=== PATIENT | male | born 1965 | race African-American/Black ===

== ENCOUNTER → 2017-02-16 | Outpatient (CLI) | payer OTHER ==
[~2017-02-16] MED LIST: ATROPINE SULFATE 0.1 MG/ML 5ML SYR ONE; DOBUTamine HCL 12.5 MG/ML 20 ML VIAL ONE; METOPROLOL TARTRATE 1 MG/ML VIAL ONE
--- NOTE | 2017-02-16 18:01 | DOBUTAMINE ECHO ---
*NOTICE TO RECEIVING CONSTITUTION PARTY AGENCY This information is strictly Confidential and protected under [place] law. [place] law prohibits you from making any further disclosure of this information unless further disclosure is expressly permitted by the written consent of the person to whom it pertains or is authorized by law. A general authorization for the release of medical or other information is not sufficient for this purpose. Hospital accepts no responsibility if the information is made available to any other person, INCLUDING THE PATIENT. Interpretation Summary * Name: KAUSHAL VALLE [id number] Study Date: 02/16/2017 11:39 AM BP: 128/87 mmHg * Patient Location: [facility] HR: 78 * : 1965 (M/d/yyyy) Gender: Male Height: 66 in * Age: 51 yrs Ethnicity: AA Weight: 215 lb * Referring Physician: MICKIE * Performed By: Kemi Hernandez RDCS * * Reason For Study: CHEST PAIN * BSA: 2.1 m2 * -- Conclusions -- * Dobutamine Stress Echo: * 1. Negative Dobutamine stress echo for ischemia at 93 % MPHR. * 2. Negative Dobutamine ECG for ischemia at 93 % MPHR. * 3. Appropriate blood pressure response. * 4. No arrhythmia. * 5. Intermittent sharp chest discomfort was reported, reportedly different than his prior chest pain. * 6. Technically difficult study, enhanced with IV Definity. * Echo: * 1. Normal left ventricular size and systolic function. EF 60-65%. No regional wall motion abnormalities. No left ventricular hypertrophy. Type 2 diastolic dysfunction, pseudo normalized pattern. * 2. Mild to moderate mitral regurgitation. Procedure Details * DOBUTAMINE ECHO, CPT#09612 * A contrast injection of Definity was performed to improve assessment of LV function. * Contrast was injected into an intravenous site in the left arm. * One vial of Definity ultrasound contrast was diluted in normal saline to a total volume of 10 ml. A total of '6' ml of solution was administered during imaging. * Lot # [id number] of Definity utilized for procedure. * Expiration date FEB 18. * The attending nurse who injected the contrast agent was MITCHEL SHEPPARD RN. Left Ventricle * The left ventricle is normal in size. * There is normal left ventricular wall thickness. * Left ventricular systolic function is normal. * Resting wall motion: Normal. Stress wall motion: Appropriate increase in Left ventricular systolic function and decrease in cavity size. No stress induced segmental wall motion abnormalities. * The left ventricular ejection fraction increases normally with stress. The left ventricular end-systolic cavity size reduces post-stress (normal response). The left ventricular wall motion with stress is normal. Right Ventricle * The right ventricle is normal in size and function. * The right ventricular systolic function is normal as assessed by tricuspid annular plane systolic excursion (TAPSE) (normal >1.5 cm). Atria * Borderline left atrial enlargement. * Right atrial size is normal. * There is no evidence of atrial septal defect, but resolution does not allow assessment for a patent foramen ovale. Mitral Valve * The mitral valve is grossly normal. * There is no mitral valve stenosis. * There is mild to moderate mitral regurgitation. Tricuspid Valve * The tricuspid valve is not well visualized, but is grossly normal. * There is no tricuspid stenosis. * There is trace tricuspid regurgitation. Aortic Valve * The aortic valve is trileaflet. * No hemodynamically significant valvular aortic stenosis. * No aortic regurgitation is present. Pulmonic Valve * The pulmonary valve is inadequately visualized, but the Doppler data is adequate for interpretation. * There is no significant pulmonary regurgitation. Great Vessels * The aortic root is normal size. * Ascending aorta of normal dimension Pericardium * There is no pericardial effusion. Stress Parameters * Sinus rhythm at 82 bpm. * Stress ECG: No ST changes. No arrhythmias. * No arrhythmia were noted with stress. * The stress portion of this study was personally supervised by the undersigned interpreting physician. * Rest heart rate was '78' BPM. * Rest blood pressure was '128/87' * Maximum heart rate achieved was 157 bpm. * Maximum heart rate was 93 % of maximum age-predicted heart rate. * Maximum blood pressure was '128/87' * Maximum Dobutamine infusion rate was '40' mcg/kg/min. * Dobutamine infusion was terminated due to achieving target heart rate * A total of 7.5 mg of IV Metoprolol was administered to reverse Dobutamine-induced tachycardia. * The patient exhibited chest pain during the drug infusion. MMode 2D Measurements and Calculations IVSd 1.1 cm IVSs 1.7 cm LVIDd 4.5 cm LVIDs 2.9 cm LVPWd 1.1 cm LVPWs 1.7 cm IVS/LVPW 0.96 FS 36.6 % EDV(Teich) 94.8 ml ESV(Teich) 31.8 ml EF(Teich) 66.4 % EDV(cubed) 94.1 ml ESV(cubed) 24.0 ml EF(cubed) 74.5 % % IVS thick 61.1 % % LVPW thick 53.6 % LV mass(C)d 178.8 grams LV mass(C)dI 86.7 grams/m\S\2 LV mass(C)s 194.3 grams LV mass(C)sI 94.2 grams/m\S\2 SV(Teich) 63.0 ml SI(Teich) 30.5 ml/m\S\2 SV(cubed) 70.0 ml SI(cubed) 34.0 ml/m\S\2 Ao root diam 2.9 cm Ao root area 6.6 cm\S\2 LA dimension 4.1 cm asc Aorta Diam 2.5 cm LA/Ao 1.4 LVAd ap4 30.7 cm\S\2 LVLd ap4 7.7 cm EDV(MOD-sp4) 103.8 ml EDV(sp4-el) 103.7 ml LVAs ap4 18.0 cm\S\2 LVLs ap4 6.6 cm ESV(MOD-sp4) 44.9 ml ESV(sp4-el) 41.6 ml EF(MOD-sp4) 56.7 % EF(sp4-el) 59.9 % SV(MOD-sp4) 58.8 ml SI(MOD-sp4) 28.5 ml/m\S\2 SV(sp4-el) 62.1 ml SI(sp4-el) 30.1 ml/m\S\2 Doppler Measurements and Calculations MV E max agnes 87.8 cm/sec MV A max agnes 66.0 cm/sec MV E/A 1.3 MV dec time 0.16 sec Ao V2 max 101.6 cm/sec Ao max PG 4.1 mmHg Ao max PG (full) 0.25 mmHg LV V1 max PG 3.9 mmHg LV V1 max 98.5 cm/sec
== END ==
LOC: C.CPL 11:33
PROVIDERS: ATTEND Family Medicine
DX: R94.31 Abnormal electrocardiogram [ECG] [EKG] (principal); E11.8 Type 2 diabetes mellitus with unspecified complications

== ENCOUNTER 2017-09-21 23:40 | Inpatient (IN) | payer OTHER ==
[~2017-09-21] VITALS: Ht 165.1 cm; Wt 111.2 kg
[2017-09-21] MEDS ORDERED: KETOROLAC TROMETHAMINE 30 MG/ML VIAL IV STA (23:50)
[2017-09-21] MEDS ORDERED: SODIUM CHLORIDE 0.9% 1000ML 1,000 ML IV STA (23:50)
[2017-09-21] MEDS ORDERED: ONDANSETRON INJ 2 MG/ML 2 ML VIAL IV STA (23:50)
[2017-09-22 00:31] LABS: HEMATOCRIT 41.8 % (42-52); HEMOGLOBIN 15.3 g/dL (14.0-18.0); MEAN CELL VOLUME 86.7 fL (80-100); MEAN CORPUSCULAR HEMOGLOBIN 31.7 pg (25-34); MEAN CORPUSCULAR HGB CONC 36.6 g/dl (32-36); MEAN PLATELET VOLUME 9.8 fL (7.4-10.4); PLATELET COUNT 232 K/uL (130-400); RED CELL DISTRIBUTION WIDTH CV 13.2 % (11.5-14.5); RED CELL DISTRIBUTION WIDTH SD 42.2 fL (36.4-46.3); WHITE BLOOD COUNT 15.77 K/uL (4.8-10.8)
[2017-09-22 00:53] LABS: ALBUMIN 3.6 gm/dl (3.4-5.0); ALT/SGPT 51 U/L (12-78); BLOOD UREA NITROGEN 11 mg/dl (7-18); CALCIUM 8.8 mg/dl (8.5-10.1); CARBON DIOXIDE 26 mmol/L (21-32); CREATININE 0.86 mg/dl (0.60-1.40); GLUCOSE 109 mg/dl (70-99); LIPASE 1500 U/L (73-393); POTASSIUM 3.7 mmol/L (3.5-5.1); SODIUM 138 mmol/L (136-145)
[2017-09-22 00:58] LABS: ALKALINE PHOSPHATASE 78 U/L (45-117); AST/SGOT 24 U/L (15-37); TOTAL PROTEIN 8.4 gm/dl (6.4-8.2)
[2017-09-22 01:16] LABS: BASO % 0.3 %; BASO ABS # 0.04 K/uL (0-0.2); EOS % 0.2 %; EOS ABS # 0.03 K/uL (0-0.5); IG# 0.04 K/uL (0.00-0.02); LYMPH % 36.1 %; MONO % 6.9 %; MONO ABS # 1.09 K/uL (0.11-0.59); NEUT % 56.2 %; NEUT ABS # 8.87 K/uL (1.4-6.5)
[2017-09-22] MEDS ORDERED: OPTIRAY 320 IV PRN (01:30)
[2017-09-22] MEDS ORDERED: CYM/30 PO (01:45)
[2017-09-22] MEDS ORDERED: LISI-461 PO (01:45)
[2017-09-22] MEDS ORDERED: MIRT15TA2 PO (01:46)
[2017-09-22] MEDS ORDERED: INSHI7030 SQ (01:48)
[2017-09-22 04:05] VITALS: Ht 165.1 cm; Wt 111.2 kg
--- NOTE | 2017-09-22 04:08 | EMERGENCY ROOM VISIT NOTE ---
History First contact with patient: 23:47 Chief Complaint: ABDOMINAL PAIN Stated Complaint: UPPR ABDOMINAL PAIN-STEADY SHARP Nursing Triage Summary: Pt reports right upper abdominal pain. Pt states that it feels the same as when he had pancreatitis. Pt reports nausea denies vomiting. History of Present Illness The patient is a 52 year old male who presents to the Emergency Room with complaints of epigastric pain for the past few days described as discomfort, ranging in severity 7 out of 10 with nausea and vomiting. Nothing makes it better or worse. It does not radiate. Patient has a history of pancreatitis and symptoms were similar. Status post cholecystectomy. He went to the [facility] and then was sent here for further evaluation and treatment. Patient denies chest pain, dyspnea, fever, chills, cough, congestion, back pain, urinary symptoms, diarrhea. Review of Systems An 10 system review of systems was completed with positives and pertinent negatives listed in the HPI. Past Medical/Surgical History Pancreatitis, hep C, back pain, adjustment disorder, hypertension, diabetes, cholecystectomy Social History Smoking Status: Current Every Day Smoker Occupation Status: other (Incarcerated) Current/Historical Medications Scheduled Duloxetine HCl (Cymbalta), 30 MG PO DAILY Insulin Human Isophan/Regular (Humulin 70/30), 24 UNITS SQ BID Lisinopril (Zestril), 10 MG PO DAILY Mirtazapine Soltab (Remeron Soltab), 15 MG PO HS Physical Exam Vital Signs Date Time Temp Pulse Resp B/P (MAP) Pulse Ox O2 Delivery O2 Flow Rate FiO2 09/22/17 04:00 36.9 84 16 128/91 99 Room Air 09/22/17 02:01 86 16 126/84 99 Room Air 09/22/17 00:30 91 09/22/17 00:30 Room Air 09/21/17 23:42 36.9 100 20 153/99 97 Room Air Physical Exam VITALS: Vitals are noted on the nurse's note and reviewed by myself. Vital signs stable. GENERAL: -Irish male in shackles, in no acute distress, nondiaphoretic , well-developed well-nourished. SKIN: The skin was without rashes, erythema, edema, or bruising. There is no tenting of the skin. Capillary reflex less than 2 seconds. HEAD: Normocephalic atraumatic. EARS: External auditory canals clear, tympanic membranes pearly pires without erythema or effusion bilaterally. EYES: Pupils equal round and reactive to light and accommodation. Conjunctivae without injection, sclerae without icterus. Extraocular movements intact. NOSE: Patent, turbinates without inflammation or discharge. MOUTH: Mucous membranes moist. Pharynx without erythema or exudate. Uvula midline. Airway patent. Tongue does not deviate. NECK: Supple without nuchal rigidity. No lymphadenopathy. No thyromegaly. Cervical spine is nontender. No JVD. HEART: Regular rate and rhythm LUNGS: Clear to auscultation bilaterally without wheezes, rales or rhonchi. No retractions or accessory muscle use. ABDOMEN: Positive bowel sounds x 4. Normal tympanic percussion. Soft, tender to palpation epigastric region, without masses or organomegaly. Ayoub sign negative. No guarding or rebound tenderness. No CVA tenderness MUSCULOSKELETAL: No muscle atrophy, erythema, or edema noted. NEURO: Patient was alert and oriented to person place and time. Normal sensation to light and sharp touch. No focal neurological deficits. Medical Decision & Procedures Laboratory Results 09/22/17 00:18 Red Blood Count 4.82, Mean Corpuscular Volume 86.7, Mean Corpuscular Hemoglobin 31.7, Mean Corpuscular Hemoglobin Concent 36.6, Mean Platelet Volume 9.8, Neutrophils (%) (Auto) 56.2, Lymphocytes (%) (Auto) 36.1, Monocytes (%) (Auto) 6.9, Eosinophils (%) (Auto) 0.2, Basophils (%) (Auto) 0.3, Neutrophils # (Auto) 8.87, Lymphocytes # (Auto) 5.70, Monocytes # (Auto) 1.09, Eosinophils # (Auto) 0.03, Basophils # (Auto) 0.04 09/22/17 00:18 Test 09/22/17 00:18 09/22/17 00:25 White Blood Count 15.77 K/uL (4.8-10.8) Red Blood Count 4.82 M/uL (4.7-6.1) Hemoglobin 15.3 g/dL (14.0-18.0) Hematocrit 41.8 % (42-52) Mean Corpuscular Volume 86.7 fL (80-100) Mean Corpuscular Hemoglobin 31.7 pg (25-34) Mean Corpuscular Hemoglobin Concent 36.6 g/dl (32-36) Platelet Count 232 K/uL (130-400) Mean Platelet Volume 9.8 fL (7.4-10.4) Neutrophils (%) (Auto) 56.2 % Lymphocytes (%) (Auto) 36.1 % Monocytes (%) (Auto) 6.9 % Eosinophils (%) (Auto) 0.2 % Basophils (%) (Auto) 0.3 % Neutrophils # (Auto) 8.87 K/uL (1.4-6.5) Lymphocytes # (Auto) 5.70 K/uL (1.2-3.4) Monocytes # (Auto) 1.09 K/uL (0.11-0.59) Eosinophils # (Auto) 0.03 K/uL (0-0.5) Basophils # (Auto) 0.04 K/uL (0-0.2) RDW Standard Deviation 42.2 fL (36.4-46.3) RDW Coefficient of Variation 13.2 % (11.5-14.5) Immature Granulocyte % (Auto) 0.3 % Immature Granulocyte # (Auto) 0.04 K/uL (0.00-0.02) Anion Gap 7.0 mmol/L (3-11) Est Creatinine Clear Calc Drug Dose 114.3 ml/min Estimated GFR () 114.7 Estimated GFR (Non- 99.0 BUN/Creatinine Ratio 13.2 (10-20) Calcium Level 8.8 mg/dl (8.5-10.1) Total Bilirubin 0.4 mg/dl (0.2-1) Direct Bilirubin 0.1 mg/dl (0-0.2) Aspartate Amino Transf (AST/SGOT) 24 U/L (15-37) Alanine Aminotransferase (ALT/SGPT) 51 U/L (12-78) Alkaline Phosphatase 78 U/L (45-117) Troponin I < 0.015 ng/ml (0-0.045) Total Protein 8.4 gm/dl (6.4-8.2) Albumin 3.6 gm/dl (3.4-5.0) Lipase 1500 U/L (73-393) Bedside Troponin I < 0.030 ng/ml (0-0.045) Medications Administered Medications (Trade) Dose Ordered Sig/Martha Route Start Time Stop Time Status Last Admin Dose Admin Ondansetron HCl (Zofran Inj) 4 mg NOW STAT IV 09/21/17 23:50 09/21/17 23:54 DC 09/22/17 00:28 4 MG Ketorolac Tromethamine (Toradol Inj) 15 mg NOW STAT IV 09/21/17 23:50 09/21/17 23:54 DC 09/22/17 00:29 15 MG Sodium Chloride 1,000 ml @ 999 mls/hr Q1H1M STAT IV 09/21/17 23:50 09/22/17 00:50 DC 09/22/17 00:28 999 MLS/HR ED Course Prior records/ancillary studies reviewed. Triage Nursing notes reviewed. Additional history obtained from correction officers. The patient's history was concerning for abdominal pain. Differential diagnosis: Etiologies such as appendicitis, diverticulitis, PUD, biliary pathology, UTI, pancreatitis, obstruction, mesenteric ischemia, aortic pathology, infections, inflammatory bowel disease, renal colic, as well as others were entertained. Physical examination findings: As above. ER treatment provided: IV fluids, Toradol, Zofran On reassessment the patient felt better. Diagnostics interpreted by me: ECG: Normal sinus, normal intervals, poor baseline, no acute ST-T wave changes, rate of 96. Impression normal sinus rhythm interpreted by myself The labs revealed leukocytosis, elevated lipase, negative troponin Imaging studies: Chest x-ray with no acute consolidation, pneumothorax free of my interpretation Abdominal pelvis CT concerning for acute pancreatitis per radiology Consultation: A consultation was placed with the hospitalist, Dr. Wren. The case was discussed and diagnostics were reviewed. The patient was evaluated in the ER for further treatment. Exam and history seem consistent with pancreatitis. Patient has had this problem before. He has been admitted to [place] before for this. Patient had a CT concerning for acute pancreatitis. He had a leukocytosis. His lipase was 1500. He will be evaluated by medicine for possible admission. Patient was afebrile and nontoxic. By the evaluation outlined above emergent etiologies such as appendicitis, diverticulitis, PUD, biliary pathology, UTI, obstruction , mesenteric ischemia, aortic pathology, inflammatory bowel disease, renal colic , as well as others were deemed relatively unlikely. The pt informed about the findings as listed above. All questions were answered and pleased with the treatment. Case reviewed with my attending The chart was completed utilizing [employer] Speech voice recognition software. Grammatical errors, random word insertions, pronoun errors, and incomplete sentences are an occassional consequence of this system due to software limitations, ambient noise, and hardware issues. Any formal questions or concerns about the content, text, or information contained within the body of this dictation should be directly addressed to the physician assistant superintendent for curriculum for clarification. Medical Decision As above Medication Reconcilliation Current Medication List: was personally reviewed by me Blood Pressure Screening Patient's blood pressure: Normal blood pressure Impression Primary Impression: Pancreatitis Departure Information Dispostion Being Evaluated By Hospitalist Condition FAIR Referrals [facility] (PCP) Patient Instructions [facility] Problem Qualifiers Primary Impression: Pancreatitis Chronicity: acute Pancreatitis type: unspecified pancreatitis type Acute pancreatitis complication: unspecified Qualified Codes: K85.90 - Acute pancreatitis without necrosis or infection, unspecified
[2017-09-22] MEDS ORDERED: GLUCAGON FOR INJ 1 MG VIAL SQ PRN (04:30)
[2017-09-22] MEDS ORDERED: DEXTROSE 50% 50 ML SYR IV PRN (04:30)
[2017-09-22] MEDS ORDERED: ACETAMINOPHEN 325 MG TAB PO PRN (04:30)
[2017-09-22] MEDS ORDERED: GLUCOSE 10 TABS/TUBE PO PRN (04:30)
[2017-09-22] MEDS ORDERED: GLUCOSE 40% GEL 15 GM TUBE PO PRN (04:30)
[2017-09-22] MEDS ORDERED: INFLUENZA VIRUS QUAD VACCINE 0.5 ML SYR IM. ONE (04:45)
[2017-09-22] MEDS ORDERED: PNEUMOCOCCAL POLYSACCHARIDES 25 MCG/0.5 ML VIAL/SYR IM. ONE (04:45)
[2017-09-22] MEDS ORDERED: INFLUENZA ADMINISTRATION CHARGE ONE (04:45)
[2017-09-22] MEDS ORDERED: PNEUMOCOCCAL ADMINISTRATION CHARGE ONE (04:45)
[2017-09-22 05:18] VITALS: O2SAT 96
[2017-09-22] MEDS ORDERED: NURSING DECISION MEDICATION ORDER SCH (05:30)
--- NOTE | 2017-09-22 05:42 | History and Physical ---
History & Physical Date & Time of Service: Sep 22, 2017 at 05:36 Chief Complaint: Uppr Abdominal Pain-Steady Sharp Primary Care Physician: Ryland DONOVAN History of Present Illness This is a 52 year old M from [facility] with 4 days of abdominal pain. Patient denies fevers or acute vomiting or changes in bowel movements. On CT scan patient was found to have evidence of pancreatics and elevated lipase on labs. Patient admitted for acute pancreatitis. Patient denies pain besides upper epigastrium. Denies shortness of breath or headache. Family History Diabetes mellitus GRANDFATHER Social History Smoking Status: Current Every Day Smoker Occupational Status: other (Incarcerated) Allergies Coded Allergies: Shellfish (Verified Allergy, Unknown, UNKNOWN, 09/22/17) Uncoded Allergies: PENICILLIN (Allergy, Unknown, UNKNOWN, 09/22/17) Home Medications Scheduled Duloxetine HCl (Cymbalta), 30 MG PO DAILY Insulin Human Isophan/Regular (Humulin 70/30), 24 UNITS SQ BID Lisinopril (Zestril), 10 MG PO DAILY Mirtazapine Soltab (Remeron Soltab), 15 MG PO HS Review of Systems Constitutional: No fever Eyes: No worsening of vision ENT: No hearing loss Respiratory: No cough, No wheezing, No shortness of breath Cardiovascular: No chest pain, No palpitations Abdomen: + pain (upper epigastric), No vomiting, No diarrhea, No constipation Musculoskeletal: No joint pain, No muscle pain, No swelling, No calf pain Genitourinary - Male: No dysuria Neurologic: No weakness, No numbness/tingling Endocrine: No fatigue Hematologic / Lymphatic: No abnormal bleeding/bruising Integumentary: No rash, No itch Physical Exam Vital Signs Date Time Temp Pulse Resp B/P (MAP) Pulse Ox O2 Delivery O2 Flow Rate FiO2 09/22/17 05:18 83 20 100/74 96 09/22/17 04:05 Room Air 09/22/17 04:00 36.9 84 16 128/91 99 Room Air 09/22/17 02:01 86 16 126/84 99 Room Air 09/22/17 00:30 91 09/22/17 00:30 Room Air 09/21/17 23:42 36.9 100 20 153/99 97 Room Air General Appearance: no apparent distress Head: normocephalic, atraumatic Eyes: normal inspection, EOMI, sclerae normal ENT: normal ENT inspection, hearing grossly normal, pharynx normal Neck: supple, no JVD, trachea midline Respiratory/Chest: chest non-tender, lungs clear, normal breath sounds, no respiratory distress, no accessory muscle use Cardiovascular: regular rate, rhythm, no edema, no JVD, no murmur, normal peripheral pulses Abdomen/GI: normal bowel sounds, soft, no organomegaly, no pulsatile mass, + pertinent finding (upper epigrastic tenderness) Back: normal inspection Extremities/Musculoskelatal: normal inspection, no calf tenderness, no pedal edema, normal range of motion Neurologic/Psych: no motor/sensory deficits, alert, normal mood/affect, oriented x 3 Skin: normal color, warm/dry, no rash Diagnostics Laboratory Results Results Past 24 Hours Test 09/22/17 00:18 09/22/17 00:25 Range/Units White Blood Count 15.77 4.8-10.8 K/uL Red Blood Count 4.82 4.7-6.1 M/uL Hemoglobin 15.3 14.0-18.0 g/dL Hematocrit 41.8 42-52 % Mean Corpuscular Volume 86.7 80-100 fL Mean Corpuscular Hemoglobin 31.7 25-34 pg Mean Corpuscular Hemoglobin Concent 36.6 32-36 g/dl Platelet Count 232 130-400 K/uL Mean Platelet Volume 9.8 7.4-10.4 fL Neutrophils (%) (Auto) 56.2 % Lymphocytes (%) (Auto) 36.1 % Monocytes (%) (Auto) 6.9 % Eosinophils (%) (Auto) 0.2 % Basophils (%) (Auto) 0.3 % Neutrophils # (Auto) 8.87 1.4-6.5 K/uL Lymphocytes # (Auto) 5.70 1.2-3.4 K/uL Monocytes # (Auto) 1.09 0.11-0.59 K/uL Eosinophils # (Auto) 0.03 0-0.5 K/uL Basophils # (Auto) 0.04 0-0.2 K/uL RDW Standard Deviation 42.2 36.4-46.3 fL RDW Coefficient of Variation 13.2 11.5-14.5 % Immature Granulocyte % (Auto) 0.3 % Immature Granulocyte # (Auto) 0.04 0.00-0.02 K/uL Sodium Level 138 136-145 mmol/L Potassium Level 3.7 3.5-5.1 mmol/L Chloride Level 105 98-107 mmol/L Carbon Dioxide Level 26 21-32 mmol/L Anion Gap 7.0 3-11 mmol/L Blood Urea Nitrogen 11 7-18 mg/dl Creatinine 0.86 0.60-1.40 mg/dl Est Creatinine Clear Calc Drug Dose 114.3 ml/min Estimated GFR () 114.7 Estimated GFR (Non- 99.0 BUN/Creatinine Ratio 13.2 10-20 Random Glucose 109 70-99 mg/dl Calcium Level 8.8 8.5-10.1 mg/dl Total Bilirubin 0.4 0.2-1 mg/dl Direct Bilirubin 0.1 0-0.2 mg/dl Aspartate Amino Transf (AST/SGOT) 24 15-37 U/L Alanine Aminotransferase (ALT/SGPT) 51 12-78 U/L Alkaline Phosphatase 78 45-117 U/L Troponin I < 0.015 0-0.045 ng/ml Total Protein 8.4 6.4-8.2 gm/dl Albumin 3.6 3.4-5.0 gm/dl Lipase 1500 73-393 U/L Bedside Troponin I < 0.030 0-0.045 ng/ml Impression Assessment and Plan 4 days of abdominal pain (upper epigastrium) CT abdomen consistent with pancreatitis, Lipase is 1500 Bowel rest: Keep NPO except ice chips, sips, meds ; Continue IV hydration Pain control medications with bowel regimen if requiring narcotics GI consult consult requested History of Diabetes on Insulin as patient is on bowel rest, will hold off usual standing dose of insulin start sliding scale insulin based on fingerstick glucose HTN monitor blood pressure while on IV fluids continue Lisinopril Mood disorder Continue duloxetine and Remeron DVT ppx: SCDs Full Code Advanced Directives Existing Living Will: No Existing Power of Lock [employer] Dam Repairer: No Resuscitation Status VTE Prophylaxis Will order VTE Prophylaxis: Yes
[2017-09-22 05:58] VITALS: BP 141/94; PULSE 79; TEMP 36.6; O2SAT 100
[2017-09-22] MEDS: KETOROLAC TROMETHAMINE 15 MG/ML VIAL IV PRN ×2 (06:14→19:28)
[2017-09-22] MEDS ORDERED: SODIUM CHLORIDE 0.9% 1000ML 1,000 ML IV SCH (06:30)
[2017-09-22] MEDS: INSULIN ASPART 100 UNITS/ML 3 ML PEN SC SCH ×4 (06:51→21:13)
--- NOTE | 2017-09-22 07:09 | DIAGNOSTIC IMAGING REPORT ---
CHEST ONE VIEW PORTABLE CLINICAL HISTORY: 52 years-old Male presenting with CHEST PAIN and abdominal pain. TECHNIQUE: Portable upright AP view of the chest was obtained. COMPARISON: None. FINDINGS: Atherosclerosis of the aortic arch. Cardiac silhouette normal in size. Lungs and pleural spaces clear. Osseous structures normal. Upper abdomen normal. IMPRESSION: 1. No acute cardiopulmonary disease. Electronically signed by: Rajesh Domínguez M.D. 09/22/2017 7:08 AM Dictated Date/Time: 09/22/2017 7:07 AM
--- NOTE | 2017-09-22 07:27 | DIAGNOSTIC IMAGING REPORT ---
ABD/PELVIS IV CONTRAST ONLY CLINICAL HISTORY: 52 years-old Male presenting with epigastric pain, elevated lipase, ? pancreatitis. TECHNIQUE: Multidetector CT of the abdomen and pelvis was performed after the administration of intravenous contrast. IV contrast: 93 mL of Optiray 320. A dose lowering technique was used consistent with the principles of ALARA (as low as reasonably achievable). COMPARISON: None. CT DOSE (mGy.cm): The estimated cumulative dose is 797.06 mGy.cm. FINDINGS: Medical Technologist Chief topogram: Cholecystectomy clips. Lung bases: Minimal basilar opacities, likely atelectasis. Normal heart size. No pericardial or pleural effusion. Liver: Normal morphology. No liver lesion. Patent hepatic vasculature. Biliary: Mild biliary ductal prominence likely a reservoir effect in the post cholecystectomy state. Gallbladder surgically absent. Pancreas: Peripancreatic fat stranding at the uncinate process and pancreatic head. Normal parenchymal enhancement. No peripancreatic or intrapancreatic fluid collection. Spleen: Normal. Splenic vein and artery patent. No aneurysm. Adrenal glands: 10 mm nodule arising from the medial limb of the left adrenal gland, indeterminate by density on this contrast-enhanced exam. Right adrenal gland normal. Kidneys and ureters: Normal parenchymal enhancement. No nephrolithiasis. No hydronephrosis. Ureters normal. Bladder: Incompletely evaluated secondary to underdistention. Pelvic organs: Prostate and seminal vesicles normal. Slight prominent dilatation of the bulbar urethra (series 3 image 458). Bowel: Normal appendix. No bowel obstruction. Mild wall thickening of the descending portion of the duodenum, likely secondarily reactive. Feces in small bowel suggest delayed transit. Peritoneal cavity: No free fluid or intraperitoneal gas. Lymph nodes: Few prominent lymph nodes in the portacaval region and tesha hepatis, likely reactive. Vasculature: Aorta and IVC patent and normal in caliber. Abdominal wall: Small fat-containing umbilical hernia. Musculoskeletal: Degenerative changes of the spine. IMPRESSION: 1. 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 No acute peripancreatic fluid collection. 2. Reactive wall thickening of the duodenum. 3. Indeterminate 10 mm left adrenal nodule. Statistically, this is most likely a benign adenoma. 4. Slight prominence of the bulbar urethra may suggest prior trauma. Electronically signed by: Rajesh Domínguez M.D. 09/22/2017 7:26 AM Dictated Date/Time: 09/22/2017 6:52 AM
[2017-09-22] MEDS: SENNA 8.6 MG TAB PO SCH (08:15)
[2017-09-22] MEDS: LISINOPRIL 10 MG TAB PO SCH (08:15)
[2017-09-22] MEDS: DULOXETINE (CYMBALTA) 30 MG CAP PO SCH (08:16)
[2017-09-22 11:30] LABS: HEMATOCRIT 42.5 % (42-52); HEMOGLOBIN 14.4 g/dL (14.0-18.0); MEAN CELL VOLUME 88.7 fL (80-100); MEAN CORPUSCULAR HEMOGLOBIN 30.1 pg (25-34); MEAN CORPUSCULAR HGB CONC 33.9 g/dl (32-36); MEAN PLATELET VOLUME 9.3 fL (7.4-10.4); PLATELET COUNT 196 K/uL (130-400); RED CELL DISTRIBUTION WIDTH CV 13.5 % (11.5-14.5); RED CELL DISTRIBUTION WIDTH SD 43.9 fL (36.4-46.3); WHITE BLOOD COUNT 10.77 K/uL (4.8-10.8)
[2017-09-22] MEDS: LACTATED RINGER'S 1000ML 1,000 ML IV SCH ×2 (11:50→18:06)
[2017-09-22 11:51] LABS: CALCIUM 8.3 mg/dl (8.5-10.1); CREATININE 0.97 mg/dl (0.60-1.40); POTASSIUM 4.7 mmol/L (3.5-5.1); TOTAL PROTEIN 7.2 gm/dl (6.4-8.2)
[2017-09-22 12:25] LABS: BASO % 0.3 %; BASO ABS # 0.03 K/uL (0-0.2); EOS % 0.7 %; EOS ABS # 0.08 K/uL (0-0.5); IG# 0.02 K/uL (0.00-0.02); LYMPH % 51.4 %; LYMPH ABS # 5.54 K/uL (1.2-3.4); MONO % 5.7 %; MONO ABS # 0.61 K/uL (0.11-0.59); NEUT % 41.7 %; NEUT ABS # 4.49 K/uL (1.4-6.5)
--- NOTE | 2017-09-22 13:04 | Gastrointestinal Consultation ---
Gastrointestinal Consultation Date of Consultation: Sep 22, 2017 Attending Physician: Roby Wren Consulting Physician: Allison Madden Reason for Consultation: Pancreatitis History of Present Illness Patient is a 52 year old male inmate who presented to ED w c/o abd pain, n/v x 4 days. Denies any bowel habit changes. Upon eval labs showed leukocytosis WBC of 15, normal H/H. CMP showed normal LFTs but Lipase noted to be elevated at 1500s. 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 He is s/p cholecystectomy, mild biliary dilation within range of post cholecystectomy state. Pt reports he's had 4 episodes of pancreatitis total. He was hospitalized in [place], [place]. [place] [facility] [place] Reviewing his outpt chart, he was admitted [place] [facility] [place] GI was consulted then. IgG4 labs negative. He had EUS done which showed biliary sludge, and he underwent cholecystectomy afterwards. He denies ETOH use for years not, but smokes tobacco daily. He denies any family hx of autoimmune diseases. Past Medical/Surgical History Medical Problems: (1) Pancreatitis Status: Acute Past Medical History: Pancreatitis, hep C, back pain, adjustment disorder, hypertension, diabetes Past Surgical History: Cholecystectomy, neck surgery Family History Diabetes mellitus GRANDFATHER Social History Smoking Status: Current Every Day Smoker Alcohol Use: none Drug Use: none Occupation Status: other (Incarcerated) Allergies Coded Allergies: Shellfish (Verified Allergy, Unknown, UNKNOWN, 09/22/17) Uncoded Allergies: PENICILLIN (Allergy, Unknown, UNKNOWN, 09/22/17) Current Medications Home Meds and Scripts Medications Dose Route/Sig Max Daily Dose Days Date Category Humulin 70/30 (Insulin Human Isoph/Insulin Regular) Inj 24 Units SQ BID 09/22/17 Reported Remeron Soltab (Mirtazapine) 15 Mg Soltab 15 Mg PO HS 09/22/17 Reported Zestril (Lisinopril) 10 Mg Tab 10 Mg PO DAILY 09/22/17 Reported Cymbalta (Duloxetine HCl) 30 Mg Cap 30 Mg PO DAILY 09/22/17 Reported Review of Systems Constitutional: No fever, No chills Respiratory: No cough, No shortness of breath Cardiac: No chest pain, No edema Abdomen: + pain, No nausea, No vomiting, No diarrhea Skin: No rash, No itch, No jaundice Physical Exam Date Time Temp Pulse Resp B/P (MAP) Pulse Ox O2 Delivery O2 Flow Rate FiO2 09/22/17 08:00 Room Air 09/22/17 05:58 36.6 79 16 141/94 (110) 100 Room Air 09/22/17 05:18 83 20 100/74 96 09/22/17 04:05 Room Air 09/22/17 04:00 36.9 84 16 128/91 99 Room Air 09/22/17 02:01 86 16 126/84 99 Room Air 09/22/17 00:30 91 09/22/17 00:30 Room Air 09/21/17 23:42 36.9 100 20 153/99 97 Room Air General Appearance: WD/WN, no apparent distress Eyes: normal inspection, PERRL Neck: supple, no JVD, trachea midline Respiratory/Chest: normal breath sounds, no respiratory distress, no accessory muscle use Cardiovascular: regular rate, rhythm, no gallop, no murmur Abdomen: normal bowel sounds, soft, + tenderness (mid upper abd quadrants ) Extremities: normal inspection, no pedal edema, no calf tenderness Neurologic/Psych: alert, normal mood/affect, oriented x 3 Skin: normal color, no jaundice, no rash Laboratory Results Last 24 Hours Test 09/22/17 00:18 09/22/17 00:25 09/22/17 06:17 09/22/17 11:19 White Blood Count 15.77 K/uL 10.77 K/uL Red Blood Count 4.82 M/uL 4.79 M/uL Hemoglobin 15.3 g/dL 14.4 g/dL Hematocrit 41.8 % 42.5 % Mean Corpuscular Volume 86.7 fL 88.7 fL Mean Corpuscular Hemoglobin 31.7 pg 30.1 pg Mean Corpuscular Hemoglobin Concent 36.6 g/dl 33.9 g/dl Platelet Count 232 K/uL 196 K/uL Mean Platelet Volume 9.8 fL 9.3 fL Neutrophils (%) (Auto) 56.2 % 41.7 % Lymphocytes (%) (Auto) 36.1 % 51.4 % Monocytes (%) (Auto) 6.9 % 5.7 % Eosinophils (%) (Auto) 0.2 % 0.7 % Basophils (%) (Auto) 0.3 % 0.3 % Neutrophils # (Auto) 8.87 K/uL 4.49 K/uL Lymphocytes # (Auto) 5.70 K/uL 5.54 K/uL Monocytes # (Auto) 1.09 K/uL 0.61 K/uL Eosinophils # (Auto) 0.03 K/uL 0.08 K/uL Basophils # (Auto) 0.04 K/uL 0.03 K/uL RDW Standard Deviation 42.2 fL 43.9 fL RDW Coefficient of Variation 13.2 % 13.5 % Immature Granulocyte % (Auto) 0.3 % 0.2 % Immature Granulocyte # (Auto) 0.04 K/uL 0.02 K/uL Blood Smear Review Sodium Level 138 mmol/L 139 mmol/L Potassium Level 3.7 mmol/L 4.7 mmol/L Chloride Level 105 mmol/L 106 mmol/L Carbon Dioxide Level 26 mmol/L 30 mmol/L Anion Gap 7.0 mmol/L 3.0 mmol/L Blood Urea Nitrogen 11 mg/dl 12 mg/dl Creatinine 0.86 mg/dl 0.97 mg/dl Est Creatinine Clear Calc Drug Dose 114.3 ml/min 101.4 ml/min Estimated GFR () 114.7 102.9 Estimated GFR (Non- 99.0 88.8 BUN/Creatinine Ratio 13.2 12.0 Random Glucose 109 mg/dl 91 mg/dl Calcium Level 8.8 mg/dl 8.3 mg/dl Total Bilirubin 0.4 mg/dl 0.5 mg/dl Direct Bilirubin 0.1 mg/dl Aspartate Amino Transf (AST/SGOT) 24 U/L 23 U/L Alanine Aminotransferase (ALT/SGPT) 51 U/L 42 U/L Alkaline Phosphatase 78 U/L 66 U/L Troponin I < 0.015 ng/ml Total Protein 8.4 gm/dl 7.2 gm/dl Albumin 3.6 gm/dl 3.0 gm/dl Lipase 1500 U/L 241 U/L Bedside Troponin I < 0.030 ng/ml Bedside Glucose 99 mg/dl Globulin 4.2 gm/dl Albumin/Globulin Ratio 0.7 Test 09/22/17 12:00 Bedside Glucose 89 mg/dl Impression Patient is a 52 year old male with abd pain, n/v for 4 days, labs showed elevated Lipase but normal LFTs. 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 He had several occurrence of pancreatitis, last admitted at [facility] in 2011. Had EUS workup then which showed biliary sludge and he underwent cholecystectomy. IgG4 lab negative. He denies ETOH, illicit drugs but continues to smoke tobacco. Plan - LR @ 150ml/hr - CL diet by end of day if no increased abd pain, n/v - Symptomatic management w analgesics and antiemetics prn - Will consider repeat EUS in 4-6 weeks' time in outpt setting.
[2017-09-22 14:57] VITALS: BP 129/85; PULSE 80; TEMP 36.4; O2SAT 97
[2017-09-22] MEDS: MIRTAZAPINE SOLTAB 15 MG PO SCH (21:44)
--- NOTE | 2017-09-22 22:24 | Progress Note ---
Medicine Progress Note Date & Time of Visit: Sep 22, 2017 at 22:24. Subjective See H&P from this AM for more details. Patient reports abdominal pain is improving. Tolerating a clear liquid diet. No other complaints noted at this time. Objective Last 8 Hrs Date Time Temp Pulse Resp B/P (MAP) Pulse Ox O2 Delivery O2 Flow Rate FiO2 09/22/17 19:30 Room Air 09/22/17 16:00 Room Air 09/22/17 14:57 36.4 80 18 129/85 (100) 97 Room Air Physical Exam: GENERAL: Patient is in no acute distress. HEENT: No acute trauma, normocephalic, mucous membranes moist, no nasal congestion, no scleral icterus. NECK: No stridor, trachea is midline. LUNGS: Clear to auscultation bilaterally, no wheeze, no rhonchi, breath sounds equal. HEART: Without murmurs gallops or rubs, regular rate and rhythm. ABDOMEN: Soft, nontender, bowel sounds positive EXTREMITIES: No cyanosis or edema, full range of motion of all the joints without pain or difficulty, no signs for acute trauma. NEUROLOGIC: Oriented x 3, no acute motor or sensory deficits, no focal weakness. SKIN: No rash, no jaundice, no diaphoresis. Laboratory Results: Last 24 Hours Test 09/22/17 00:18 09/22/17 00:25 09/22/17 06:17 09/22/17 11:19 White Blood Count 15.77 K/uL 10.77 K/uL Red Blood Count 4.82 M/uL 4.79 M/uL Hemoglobin 15.3 g/dL 14.4 g/dL Hematocrit 41.8 % 42.5 % Mean Corpuscular Volume 86.7 fL 88.7 fL Mean Corpuscular Hemoglobin 31.7 pg 30.1 pg Mean Corpuscular Hemoglobin Concent 36.6 g/dl 33.9 g/dl Platelet Count 232 K/uL 196 K/uL Mean Platelet Volume 9.8 fL 9.3 fL Neutrophils (%) (Auto) 56.2 % 41.7 % Lymphocytes (%) (Auto) 36.1 % 51.4 % Monocytes (%) (Auto) 6.9 % 5.7 % Eosinophils (%) (Auto) 0.2 % 0.7 % Basophils (%) (Auto) 0.3 % 0.3 % Neutrophils # (Auto) 8.87 K/uL 4.49 K/uL Lymphocytes # (Auto) 5.70 K/uL 5.54 K/uL Monocytes # (Auto) 1.09 K/uL 0.61 K/uL Eosinophils # (Auto) 0.03 K/uL 0.08 K/uL Basophils # (Auto) 0.04 K/uL 0.03 K/uL RDW Standard Deviation 42.2 fL 43.9 fL RDW Coefficient of Variation 13.2 % 13.5 % Immature Granulocyte % (Auto) 0.3 % 0.2 % Immature Granulocyte # (Auto) 0.04 K/uL 0.02 K/uL Blood Smear Review Sodium Level 138 mmol/L 139 mmol/L Potassium Level 3.7 mmol/L 4.7 mmol/L Chloride Level 105 mmol/L 106 mmol/L Carbon Dioxide Level 26 mmol/L 30 mmol/L Anion Gap 7.0 mmol/L 3.0 mmol/L Blood Urea Nitrogen 11 mg/dl 12 mg/dl Creatinine 0.86 mg/dl 0.97 mg/dl Est Creatinine Clear Calc Drug Dose 114.3 ml/min 101.4 ml/min Estimated GFR () 114.7 102.9 Estimated GFR (Non- 99.0 88.8 BUN/Creatinine Ratio 13.2 12.0 Random Glucose 109 mg/dl 91 mg/dl Calcium Level 8.8 mg/dl 8.3 mg/dl Total Bilirubin 0.4 mg/dl 0.5 mg/dl Direct Bilirubin 0.1 mg/dl Aspartate Amino Transf (AST/SGOT) 24 U/L 23 U/L Alanine Aminotransferase (ALT/SGPT) 51 U/L 42 U/L Alkaline Phosphatase 78 U/L 66 U/L Troponin I < 0.015 ng/ml Total Protein 8.4 gm/dl 7.2 gm/dl Albumin 3.6 gm/dl 3.0 gm/dl Lipase 1500 U/L 241 U/L Bedside Troponin I < 0.030 ng/ml Bedside Glucose 99 mg/dl Globulin 4.2 gm/dl Albumin/Globulin Ratio 0.7 Test 09/22/17 12:00 09/22/17 16:50 Bedside Glucose 89 mg/dl 99 mg/dl Date/Time Source Procedure Growth Status 09/22/17 06:08 Nasal MRSA DNA Surveillance Screen - Final Specimen Negative for MRSA by DNA Probe Complete Assessment & Plan Current Inpatient Medications: Current Inpatient Medications Medications (Trade) Dose Ordered Sig/Martha Route Start Time Stop Time Status Last Admin Dose Admin Ioversol (Optiray 320) 100 ml UD PRN IV 09/22/17 01:30 09/26/17 01:29 Acetaminophen (Tylenol Tab) 650 mg Q4H PRN PO 09/22/17 04:30 10/22/17 04:29 Ketorolac Tromethamine (Toradol Inj) 15 mg Q6H PRN IV 09/22/17 04:30 09/27/17 04:29 09/22/17 19:28 15 MG Duloxetine HCl (Cymbalta Cap) 30 mg DAILY PO 09/22/17 08:00 10/22/17 08:59 09/22/17 08:16 30 MG Lisinopril (Zestril Tab) 10 mg DAILY PO 09/22/17 08:00 10/22/17 08:59 09/22/17 08:15 10 MG Mirtazapine (Remeron Solutab) 15 mg HS PO 09/22/17 21:00 10/22/17 20:59 09/22/17 21:44 15 MG Glucose (Glucose 40% Gel) 15-30 GRAMS 15 GRAMS... UD PRN PO 09/22/17 04:30 10/22/17 04:29 Glucose (Glucose Chew Tab) 4-8 Tablets 4 Tabl... UD PRN PO 09/22/17 04:30 10/22/17 04:29 Dextrose (Dextrose 50% 50ML Syringe) 25-50ML OF 50% DW IV FOR... UD PRN IV 09/22/17 04:30 10/22/17 04:29 Glucagon (Glucagon Inj) 1 mg UD PRN SQ 09/22/17 04:30 10/22/17 04:29 Senna (Senokot Tab) 8.6 mg QAM PO 09/22/17 08:00 10/22/17 08:59 09/22/17 08:15 8.6 MG Lactated Ringer's 1,000 ml @ 150 mls/hr [id number] IV 09/22/17 11:15 10/22/17 11:14 09/22/17 18:06 150 MLS/HR Insulin Aspart (novoLOG ASPART) SLIDING SCALE If C... ACHS ME 09/22/17 16:30 10/22/17 16:29
[2017-09-23] VITALS: BP 131/82; PULSE 79; TEMP 36.4; O2SAT 96
[2017-09-23] MEDS: LACTATED RINGER'S 1000ML 1,000 ML IV SCH ×3 (00:45→16:14)
[2017-09-23] MEDS: SENNA 8.6 MG TAB PO SCH (07:20)
[2017-09-23] MEDS: LISINOPRIL 10 MG TAB PO SCH (07:20)
[2017-09-23] MEDS: DULOXETINE (CYMBALTA) 30 MG CAP PO SCH (07:20)
[2017-09-23 07:28] VITALS: BP 128/84; PULSE 74; TEMP 36.4; O2SAT 98
[2017-09-23] MEDS: INSULIN ASPART 100 UNITS/ML 3 ML PEN SC SCH ×4 (07:54→20:58)
--- NOTE | 2017-09-23 12:47 | Gastroenterology Progress Note ---
Progress Note Date of Service: Sep 23, 2017 Subjective Pt evaluation today including: conversation w/ patient, physical exam, chart review, lab review, review of inpatient medication list Pt moving bowels, loose. Denies any rectal bleeding. Said n/v, abd pain is improved. Tolerated CL diet. Review of Systems Constitutional: No fever, No chills Respiratory: No cough, No shortness of breath Cardiac: No chest pain Abdomen: + pain (better), + nausea (better), No vomiting, No GI bleeding Medications Current Inpatient Medications Medications (Trade) Dose Ordered Sig/Martha Route Start Time Stop Time Status Last Admin Dose Admin Ioversol (Optiray 320) 100 ml UD PRN IV 09/22/17 01:30 09/26/17 01:29 Acetaminophen (Tylenol Tab) 650 mg Q4H PRN PO 09/22/17 04:30 10/22/17 04:29 Ketorolac Tromethamine (Toradol Inj) 15 mg Q6H PRN IV 09/22/17 04:30 09/27/17 04:29 09/22/17 19:28 15 MG Duloxetine HCl (Cymbalta Cap) 30 mg DAILY PO 09/22/17 08:00 10/22/17 08:59 09/23/17 07:20 30 MG Lisinopril (Zestril Tab) 10 mg DAILY PO 09/22/17 08:00 10/22/17 08:59 09/23/17 07:20 10 MG Mirtazapine (Remeron Solutab) 15 mg HS PO 09/22/17 21:00 10/22/17 20:59 09/22/17 21:44 15 MG Glucose (Glucose 40% Gel) 15-30 GRAMS 15 GRAMS... UD PRN PO 09/22/17 04:30 10/22/17 04:29 Glucose (Glucose Chew Tab) 4-8 Tablets 4 Tabl... UD PRN PO 09/22/17 04:30 10/22/17 04:29 Dextrose (Dextrose 50% 50ML Syringe) 25-50ML OF 50% DW IV FOR... UD PRN IV 09/22/17 04:30 10/22/17 04:29 Glucagon (Glucagon Inj) 1 mg UD PRN SQ 09/22/17 04:30 10/22/17 04:29 Senna (Senokot Tab) 8.6 mg QAM PO 09/22/17 08:00 10/22/17 08:59 09/23/17 07:20 8.6 MG Lactated Ringer's 1,000 ml @ 75 mls/hr [id number] IV 09/22/17 11:15 10/22/17 11:14 09/23/17 07:20 150 MLS/HR Insulin Aspart (novoLOG ASPART) SLIDING SCALE If C... ACHS SC 09/22/17 16:30 10/22/17 16:29 Objective Vital Signs Date Time Temp Pulse Resp B/P (MAP) Pulse Ox O2 Delivery O2 Flow Rate FiO2 09/23/17 08:00 Room Air 09/23/17 07:28 36.4 74 18 128/84 (99) 98 Room Air 09/23/17 00:00 Room Air 09/23/17 00:00 36.4 79 20 131/82 (98) 96 Room Air 09/22/17 19:30 Room Air 09/22/17 16:00 Room Air 09/22/17 14:57 36.4 80 18 129/85 (100) 97 Room Air Physical Exam General Appearance: WD/WN, no apparent distress Eyes: normal inspection, PERRL, EOMI Neck: supple, no JVD, trachea midline Respiratory/Chest: normal breath sounds, no respiratory distress, no accessory muscle use Cardiovascular: regular rate, rhythm, no gallop, no murmur Abdomen: normal bowel sounds, non tender, soft Extremities: normal inspection, no pedal edema, no calf tenderness Neurologic/Psych: alert, normal mood/affect, oriented x 3 Skin: normal color, no jaundice, no rash Laboratory Results Last 24 Hours Test 09/22/17 16:50 09/22/17 19:55 09/23/17 07:52 09/23/17 11:32 Bedside Glucose 99 mg/dl 147 mg/dl 91 mg/dl 92 mg/dl Assessment and Plan Patient is a 52 year old male with abd pain, n/v for 4 days, labs showed elevated Lipase but normal LFTs. 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 He had several occurrence of pancreatitis, last admitted at [facility] in 2011. Had EUS workup then which showed biliary sludge and he underwent cholecystectomy. IgG4 lab negative. He denies ETOH, illicit drugs but continues to smoke tobacco. Plans - LR @ 75ml/hr, may DC if tolerated PO fluids well - [place] diet; advance to low fat diet as tolerated - Symptomatic management w analgesics and antiemetics prn - Repeat EUS in 4-6 weeks' time in outpt setting. [facility] to call [phone] for appt. - Will sign off; call if new questions/concerns arise.
[2017-09-23 15:01] VITALS: BP 143/88; PULSE 76; TEMP 36.7; O2SAT 98
[2017-09-23] MEDS: MIRTAZAPINE SOLTAB 15 MG PO SCH (20:58)
[2017-09-23 22:24] VITALS: BP 148/95; PULSE 77; TEMP 36.7; O2SAT 99
--- NOTE | 2017-09-23 22:31 | Progress Note ---
Medicine Progress Note Date & Time of Visit: Sep 23, 2017 at 22:23. Subjective Patient tolerating full liquid diet without any difficulty. No overnight events noted. States he has had looser bowel movements. Abdominal pain improved. No other complaints noted. Objective Last 8 Hrs Date Time Temp Pulse Resp B/P (MAP) Pulse Ox O2 Delivery O2 Flow Rate FiO2 09/23/17 16:00 Room Air 09/23/17 15:01 36.7 76 18 143/88 (106) 98 Room Air Physical Exam: GENERAL: Patient is in no acute distress. HEENT: No acute trauma, normocephalic, mucous membranes moist, no nasal congestion, no scleral icterus. NECK: No stridor, trachea is midline. LUNGS: Clear to auscultation bilaterally, no wheeze, no rhonchi, breath sounds equal. HEART: Without murmurs gallops or rubs, regular rate and rhythm. ABDOMEN: Soft, nontender, bowel sounds positive EXTREMITIES: No cyanosis or edema, full range of motion of all the joints without pain or difficulty, no signs for acute trauma. NEUROLOGIC: Oriented x 3, no acute motor or sensory deficits, no focal weakness. SKIN: No rash, no jaundice, no diaphoresis. Laboratory Results: Last 24 Hours Test 09/23/17 07:52 09/23/17 11:32 09/23/17 16:57 Bedside Glucose 91 mg/dl 92 mg/dl 108 mg/dl Assessment & Plan ACUTE PANCREATITIS: -4 days of abdominal pain (upper epigastrium) prior to admission -CT abdomen/pelvis consistent with pancreatitis, Lipase 1500-->241 -diet advanced to full liquids today per GI, will advance to solids tonight -continue IV hydration -Pain control -bowel regimen if requiring narcotics -GI consulted, appreciate input, plan for outpatient EUS in several weeks DM TYPE II: -holding usual dose of insulin -sliding scale insulin as needed; currently BSG has been normal and required no correction/insulin HTN: -monitor blood pressure while on IV fluids -continue Lisinopril MOOD DISORDER: -continue duloxetine and Remeron -stable Current Inpatient Medications: Current Inpatient Medications Medications (Trade) Dose Ordered Sig/Martha Route Start Time Stop Time Status Last Admin Dose Admin Ioversol (Optiray 320) 100 ml UD PRN IV 09/22/17 01:30 09/26/17 01:29 Acetaminophen (Tylenol Tab) 650 mg Q4H PRN PO 09/22/17 04:30 10/22/17 04:29 Ketorolac Tromethamine (Toradol Inj) 15 mg Q6H PRN IV 09/22/17 04:30 09/27/17 04:29 09/22/17 19:28 15 MG Duloxetine HCl (Cymbalta Cap) 30 mg DAILY PO 09/22/17 08:00 10/22/17 08:59 09/23/17 07:20 30 MG Lisinopril (Zestril Tab) 10 mg DAILY PO 09/22/17 08:00 10/22/17 08:59 09/23/17 07:20 10 MG Mirtazapine (Remeron Solutab) 15 mg HS PO 09/22/17 21:00 10/22/17 20:59 09/23/17 20:58 15 MG Glucose (Glucose 40% Gel) 15-30 GRAMS 15 GRAMS... UD PRN PO 09/22/17 04:30 10/22/17 04:29 Glucose (Glucose Chew Tab) 4-8 Tablets 4 Tabl... UD PRN PO 09/22/17 04:30 10/22/17 04:29 Dextrose (Dextrose 50% 50ML Syringe) 25-50ML OF 50% DW IV FOR... UD PRN IV 09/22/17 04:30 10/22/17 04:29 Glucagon (Glucagon Inj) 1 mg UD PRN SQ 09/22/17 04:30 10/22/17 04:29 Senna (Senokot Tab) 8.6 mg QAM PO 09/22/17 08:00 10/22/17 08:59 09/23/17 07:20 8.6 MG Lactated Ringer's 1,000 ml @ 75 mls/hr [id number] IV 09/22/17 11:15 10/22/17 11:14 09/23/17 16:14 75 MLS/HR Insulin Aspart (novoLOG ASPART) SLIDING SCALE If C... ACHS SC 09/22/17 16:30 10/22/17 16:29
[2017-09-24] MEDS: KETOROLAC TROMETHAMINE 15 MG/ML VIAL IV PRN (00:25)
[2017-09-24] MEDS: LACTATED RINGER'S 1000ML 1,000 ML IV SCH (05:09)
[2017-09-24 07:34] VITALS: BP 112/73; PULSE 70; TEMP 36.5; O2SAT 98
[2017-09-24] MEDS: INSULIN ASPART 100 UNITS/ML 3 ML PEN SC SCH ×2 (08:24→12:17)
[2017-09-24] MEDS: DULOXETINE (CYMBALTA) 30 MG CAP PO SCH (09:12)
[2017-09-24] MEDS: SENNA 8.6 MG TAB PO SCH (09:12)
[2017-09-24] MEDS: LISINOPRIL 10 MG TAB PO SCH (09:12)
[2017-09-24 15:15] VITALS: BP 138/87; PULSE 80; TEMP 36.7; O2SAT 98
--- NOTE | 2017-09-24 15:40 | Discharge Instructions ---
Discharge Instructions Date of Service Sep 24, 2017. Admission Reason for Admission: Pancreatitis Discharge Discharge Diagnosis / Problem: Acute pancreatitis Discharge Goals Goal(s): Therapeutic intervention Activity Recommendations Activity Level: Up Ad Sowmya . Additional Information Patient informed of condition: Yes Advance Directives: No DNR: No Level of Care: Other Communicable Disease: No Prognosis: Stable Lam Catheter: No Instructions / Follow-Up Instructions / Follow-Up Follow up with Primary in 3-5 days Follow up with GI as recommended: Repeat EUS in 4-6 weeks' time in outpt setting. [facility] to call [phone] for appt. Please check BSG 2-3 times per day for close monitoring as patient may not require as much insulin as he was taking Current Hospital Diet Patient's current hospital diet: Low Fat Diet Discharge Diet Recommended Diet: Diabetes Type 2 Diet, Low Fat Diet Pending Studies Studies pending at discharge: no Medical Emergencies . Who to Call and When: Medical Emergencies: If at any time you feel your situation is an emergency, please call 911 immediately. . Non-Emergent Contact Non-Emergency issues call your: Primary Care Provider . . "Provider Documentation" section prepared by Valerie Lopez. . Core Measure Problem Core Measures: None
[2017-09-24 15:42] VITALS: BP 138/87; PULSE 80; TEMP 36.7; O2SAT 98
--- NOTE | 2017-09-24 15:49 | Discharge Summary ---
Discharge Summary Date of Service Sep 24, 2017. Discharge Summary Admission Date: Sep 22, 2017 at 04:20 Discharge Date: Sep 24, 2017 Discharge Disposition: Home Principal Diagnosis: Pancreatitis Medication Reconciliation Continued Medications: Duloxetine HCl (Cymbalta) 30 Mg Cap 30 MG PO DAILY Insulin Human Isophan/Regular (Humulin 70/30) Inj 7 UNITS SQ BID, #1 VIAL Lisinopril (Zestril) 10 Mg Tab 10 MG PO DAILY, TAB Mirtazapine Soltab (Remeron Soltab) 15 Mg Soltab 15 MG PO HS Admission Information HPI (per Admitting provider): This is a 52 year old M from [facility] with 4 days of abdominal pain. Patient denies fevers or acute vomiting or changes in bowel movements. On CT scan patient was found to have evidence of pancreatics and elevated lipase on labs. Patient admitted for acute pancreatitis. Patient denies pain besides upper epigastrium. Denies shortness of breath or headache. Physical Exam (per Admitting): General Appearance: no apparent distress Head: normocephalic, atraumatic Eyes: normal inspection, EOMI, sclerae normal ENT: normal ENT inspection, hearing grossly normal, pharynx normal Neck: supple, no JVD, trachea midline Respiratory/Chest: chest non-tender, lungs clear, normal breath sounds, no respiratory distress, no accessory muscle use Cardiovascular: regular rate, rhythm, no edema, no JVD, no murmur, normal peripheral pulses Abdomen/GI: normal bowel sounds, soft, no organomegaly, no pulsatile mass, + pertinent finding (upper epigrastic tenderness) Back: normal inspection Extremities/Musculoskelatal: normal inspection, no calf tenderness, no pedal edema, normal range of motion Neurologic/Psych: no motor/sensory deficits, alert, normal mood/affect, oriented x 3 Skin: normal color, warm/dry, no rash Hospital Course ACUTE PANCREATITIS: -4 days of abdominal pain (upper epigastrium) prior to admission -CT abdomen/pelvis consistent with pancreatitis, Lipase 1500-->241 -diet advanced to solids today, no issues noted, has had formed BM today -continue IV hydration; can stop now -Pain control -bowel regimen if requiring narcotics -GI consulted, appreciate input, plan for outpatient EUS in several weeks DM TYPE II: -holding usual dose of insulin -sliding scale insulin as needed; currently BSG has been normal and required no correction/insulin -will resume lower dose insulin and further titration to be done in [place] HTN: -monitor blood pressure while on IV fluids -continue Lisinopril MOOD DISORDER: -continue duloxetine and Remeron -stable PHYSICAL EXAM: GENERAL: Patient is in no acute distress. HEENT: No acute trauma, normocephalic, mucous membranes moist, no nasal congestion, no scleral icterus. NECK: No stridor, trachea is midline. LUNGS: Clear to auscultation bilaterally, no wheeze, no rhonchi, breath sounds equal. HEART: Without murmurs gallops or rubs, regular rate and rhythm. ABDOMEN: Soft, nontender, bowel sounds positive EXTREMITIES: No cyanosis or edema, full range of motion of all the joints without pain or difficulty, no signs for acute trauma. NEUROLOGIC: Oriented x 3, no acute motor or sensory deficits, no focal weakness. SKIN: No rash, no jaundice, no diaphoresis. Total time spent on discharge = 39 This includes examination of the patient, discharge planning, medication reconciliation, and communication with other providers. Discharge Instructions see patient instructions
== END 2017-09-24 16:46 | DRG 440 ==
LOC: C.EDB 23:42 → C.MS4W 09-22 04:20 → ENRESERV 09-22 05:05
PROVIDERS: ADMIT Hospitalist; ATTEND Internal Medicine
DX: K85.90 Acute pancreatitis without necrosis or infection, unspecified (principal); E11.9 Type 2 diabetes mellitus without complications; I10 Essential (primary) hypertension; F39 Unspecified mood [affective] disorder; F17.210 Nicotine dependence, cigarettes, uncomplicated; Z86.19 Personal history of other infectious and parasitic diseases; Z79.4 Long term (current) use of insulin; Z79.899 Other long term (current) drug therapy

== ENCOUNTER 2023-04-29 11:09 | Inpatient (IN) ==
[2023-04-29] MEDS ORDERED: SODIUM CHLORIDE 0.9% 1,000 ML IV SCH (11:15)
[2023-04-29] MEDS ORDERED: ONDANSETRON INJ 2 MG/ML 2 ML VIAL IV STA (11:18)
--- NOTE | 2023-04-29 11:18 | Emergency Department Note ---
Impression & Plan Vomiting, Abdominal pain, Acidosis, lactic, Hyperglycemia, DKA (diabetic ketoacidosis) ED Provider Note HISTORY OF PRESENT ILLNESS: Patient is a 57-year-old male presenting with abdominal pain, vomiting and diarrhea. Patient states that he woke up this morning was feeling generally unwell. He has had multiple episodes of vomiting and diarrhea. He is also been feeling generalized fatigue since waking up this morning. At the long term, they checked his blood sugar and it was reading as high. He was given 30 units of Lantus and 12 units of short acting insulin. On arrival to the ER, the patient is complaining of of nausea. He reports that he does not take his insulin regularly. Denies any recent antibiotic use. Denies any chest pain or shortness of breath. No reported fevers, but the patient reports that he woke up today and was drenched in sweat. Patient reports abdominal surgical history of a cholecystectomy. He complains of generalized abdominal pain that seems to come and go with his vomiting and diarrhea episodes. ROS: as above PHYSICAL EXAM: Constitutional: Patient appears in no acute distress. HENT: Head: Normocephalic and atraumatic. Eyes: EOMI, PERRL Mouth/Throat: Mucous membranes moist. Neck: Trachea midline. Neck supple. Cardiovascular: Tachycardic with regular rhythm. No murmurs, rubs or gallops. Intact distal pulses. Pulmonary/Chest: No respiratory distress. Breath sounds clear and equal bilaterally. No wheezes or rales. Abdominal: Abdomen soft, no tenderness, rebound or guarding. Musculoskeletal: No edema, tenderness or deformity noted. Skin: Warm and dry. No rash, erythema, pallor or cyanosis Psychiatric: Appropriate mood and affect for situation. Neurological: Alert and keenly responsive. CN II-XII grossly intact, moving all extremities equally and fully. MDM: - Vitals signs stable. - History obtained via patient. Patient presents with abdominal pain, vomiting and diarrhea. Patient reports he woke up this morning feeling generally unwell. He had a multiple episodes of vomiting and diarrhea. Has generalized abdominal pain. Denies any chest pain or shortness of breath. He has a history of type 2 diabetes and had his blood sugar tested and it was high. He was given 30 units of Lantus and 12 units of short acting insulin at the facility. Patient reports he is not compliant with his insulin dosing. - Chronic conditions affecting care: DM-2 - Differential diagnoses include, but are not limited to: Colitis; diverticulitis; DKA; electrolyte abnormality; dehydration - Order placed for continuous cardiac monitoring. At this time, monitor showed rate of 81 bpm with normal sinus rhythm, per my interpretation. - External medical records reviewed. EMS run sheet was reviewed. Patient was g iven 200 cc normal saline prehospital - EKG reviewed by myself showed normal sinus rhythm. Rate 96 bpm. QTc 459. No acute ischemic changes - Laboratory workup interpreted by myself showed leukocytosis (WBC 16.18) with left shift; hyponatremia (Na 131 - likely pseudohyponatremia from hyperglycemia ); hyperglycemia (glucose 557); elevated lactate (3.6); normal potassium; normal troponin - Patient given 2L NS and 4 mg IV zofran - Repeat lactate down to 2.4 - Given 10 units IV insulin. - Biofire negative - CXR negative for pneumonia, per my interpretation - VBG shows metabolic acidosis (pH 7.25) - likely secondary to hyperglycemia and lactic acidosis - CT abdomen/pelvis wo contrast negative for acute pathology. - Discussion was had with psychosocial rehabilitation counselor about patient's case and need for admission - Hospitalist consulted for admission - [facility] ASSESSMENT AND PLAN: Diagnosis: vomiting; hyperglycemia; lactic acidosis; DKA Plan: admit Past Med/Surg History Social History Smoking Status: Current every day smoker Tobacco Type: Cigarettes Preferred Language: Portuguese Feels Safe at Home: Yes Allergies Allergies Allergy/AdvReac Type Severity Reaction Status Date / Time shellfish derived Allergy Unknown UNKNOWN Verified 09/22/17 01:52 PENICILLIN Allergy Unknown UNKNOWN Uncoded 09/22/17 01:51 Home Meds Home Medications Medication Instructions Recorded Confirmed Duloxetine HCl (Cymbalta) 30 mg PO DAILY ##0 09/22/17 INSULIN HUMAN ISOPHAN/REGULAR 7 unit subcut BID #1 vial 09/22/17 (Humulin 70/30) Lisinopril (Zestril) 10 mg PO DAILY #0 tabs 09/22/17 Mirtazapine Soltab (Remeron Soltab) 15 mg PO HS ##0 09/22/17 Results & Data (ED) Vital Signs Vital Signs - 24 hr 04/29/23 11:31 04/29/23 11:31 04/29/23 12:00 Temperature 36.5 C Temperature Source Oral Pulse Rate 101 H 87 Pulse Rate from SpO2 Sensor 88 Respiratory Rate 20 20 Respiratory Depth Normal Blood Pressure 116/87 Blood Pressure Mean 96 Pulse Oximetry 99 99 96 Oxygen Delivery Method Room Air Room Air Room Air Sepsis Recent Fever Within 48 Hours No Sepsis New/Unexplained Change in Mental Status No Sepsis Action Taken by Nursing No Action Required 04/29/23 12:08 04/29/23 12:08 04/29/23 12:30 Temperature Temperature Source Pulse Rate 85 Pulse Rate from SpO2 Sensor 85 Respiratory Rate 17 Respiratory Depth Blood Pressure 110/67 99/62 L Blood Pressure Mean 81 77 Pulse Oximetry 97 Oxygen Delivery Method Room Air Sepsis Recent Fever Within 48 Hours Sepsis New/Unexplained Change in Mental Status Sepsis Action Taken by Nursing 04/29/23 12:30 04/29/23 13:00 04/29/23 13:00 Temperature Temperature Source Pulse Rate 82 81 Pulse Rate from SpO2 Sensor 81 Respiratory Rate 19 20 Respiratory Depth Blood Pressure 128/84 Blood Pressure Mean 95 Pulse Oximetry 96 Oxygen Delivery Method Room Air Sepsis Recent Fever Within 48 Hours Sepsis New/Unexplained Change in Mental Status Sepsis Action Taken by Nursing 04/29/23 14:11 04/29/23 14:11 04/29/23 14:30 Temperature Temperature Source Pulse Rate 83 Pulse Rate from SpO2 Sensor 83 Respiratory Rate 17 Respiratory Depth Blood Pressure 100/72 114/74 Blood Pressure Mean 85 82 Pulse Oximetry 99 Oxygen Delivery Method Room Air Sepsis Recent Fever Within 48 Hours Sepsis New/Unexplained Change in Mental Status Sepsis Action Taken by Nursing 04/29/23 14:30 Temperature Temperature Source Pulse Rate 85 Pulse Rate from SpO2 Sensor 85 Respiratory Rate 19 Respiratory Depth Blood Pressure Blood Pressure Mean Pulse Oximetry 97 Oxygen Delivery Method Room Air Sepsis Recent Fever Within 48 Hours Sepsis New/Unexplained Change in Mental Status Sepsis Action Taken by Nursing Laboratory Data 04/29/23 11:23 04/29/23 11:23 Lab Results 04/29/23 04/29/23 04/29/23 Range/Units 11:15 11:23 11:23 WBC 16.18 H (4.8-10.8) K/ul RBC 5.74 (4.70-6.10) M/uL Hgb 15.6 (14.0-18.0) g/dl Hct 46.3 (42.0-52.0) % MCV 80.7 (80.0-100.0) fL MCH 27.2 (25.0-34.0) pg MCHC 33.7 (32.0-36.0) g/dL RDW Std Deviation 40.0 (36.4-46.3) fL RDW Coeff of Pema 14.0 (11.5-14.5) % Plt Count 236 (130-400) K/uL MPV 10.7 (9.4-12.4) fL Immature Gran % (Auto) 0.6 % Neut % (Auto) 84.7 % Lymph % (Auto) 10.9 % [place] % (Auto) 3.5 % Eos % (Auto) 0.1 % Baso % (Auto) 0.2 % Neut # (Auto) 13.72 H (1.40-6.50) K/uL Lymph # (Auto) 1.76 (1.20-3.40) K/uL [place] # (Auto) 0.56 (0.11-0.59) K/uL Eos # (Auto) 0.01 (0.00-0.50) K/uL Baso # (Auto) 0.03 (0.00-0.20) K/uL Immature Gran # (Auto) 0.10 (0.01-0.20) K/uL VBG pH (7.36-7.41) VBG pCO2 (38-50) mmHg VBG pO2 mmHg VBG HCO3 mmol/L VBG O2 Saturation % VBG Base Excess mEq/L Sodium 131 L (136-145) mmol/L Potassium 4.2 TNP (3.5-5.1) mmol/L Chloride 97 L (98-107) mmol/L Carbon Dioxide 23 (21-32) mmol/L Anion Gap 11 (3-11) BUN 15 (6-23) mg/dl Creatinine 1.04 (0.6-1.4) mg/dl Est Cr Clr Drug Dosing 86.1 ml/min Est GFR ( Amer) 91.3 ml/min Est GFR (Non-Af Amer) 78.8 ml/min BUN/Creatinine Ratio 14.4 (10-20) Glucose 557 H* (70-99(Fasting)) mg/dl POC Glucose (70-99) mg/dl Lactate (0.4-2.0) mmol/L Calcium 9.5 (8.6-10.3) mg/dl Magnesium 2.0 (1.7-2.4) mg/dl Total Bilirubin 0.5 (0.2-1.0) mg/dl AST 20 TNP (13-39) U/L ALT 11 (7-52) U/L Alkaline Phosphatase 96 (34-104) U/L Troponin I High Sens 4.2 (0-20) pg/ml Total Protein 7.4 (6.0-8.3) gm/dl Albumin 3.7 (3.4-5.0) gm/dl Globulin 3.7 (2.5-4.0) gm/dl Albumin/Globulin Ratio 1.0 (0.9-2) TSH 1.664 (0.300-4.500) uIu/ml Urine Color Urine Appearance (Clear) Urine pH (4.5-7.5) Ur Specific Clover (1.000-1.030) Urine Protein (Negative) Urine Glucose (UA) (Negative) Urine Ketones (Negative) Urine Blood (Negative) Urine Nitrite (Negative) Urine Bilirubin (Negative) Urine Urobilinogen (Negative) Ur Leukocyte Esterase (Negative) Adenovirus (PCR) (NotDetected) B. pertussis DNA (PCR) (NotDetected) B.parapertussis DNA PCR (NotDetected) C. pneumoniae DNA (PCR) (NotDetected) Coronavirus OC43 (PCR) (NotDetected) Coronavirus HKU1 (PCR) (NotDetected) Coronavirus 229E (PCR) (NotDetected) SARS-CoV-2 (PCR) (NotDetected) Coronavirus NL63 (PCR) (NotDetected) Human Metapneumovir PCR (NotDetected) Influenza Type A (PCR) (NotDetected) Influenza Type B (PCR) (NotDetected) M. pneumoniae (PCR) (NotDetected) Parainfluenza 1 (PCR) (NotDetected) Parainfluenza 2 (PCR) (NotDetected) Parainfluenza 3 (PCR) (NotDetected) Parainfluenza 4 (PCR) (NotDetected) RSV (PCR) (NotDetected) Entero/Rhino (PCR) (NotDetected) 04/29/23 04/29/23 04/29/23 Range/Units 11:23 11:23 11:24 WBC (4.8-10.8) K/ul RBC (4.70-6.10) M/uL Hgb (14.0-18.0) g/dl Hct (42.0-52.0) % MCV (80.0-100.0) fL MCH (25.0-34.0) pg MCHC (32.0-36.0) g/dL RDW Std Deviation (36.4-46.3) fL RDW Coeff of Pema (11.5-14.5) % Plt Count (130-400) K/uL MPV (9.4-12.4) fL Immature Gran % (Auto) % Neut % (Auto) % Lymph % (Auto) % [place] % (Auto) % Eos % (Auto) % Baso % (Auto) % Neut # (Auto) (1.40-6.50) K/uL Lymph # (Auto) (1.20-3.40) K/uL [place] # (Auto) (0.11-0.59) K/uL Eos # (Auto) (0.00-0.50) K/uL Baso # (Auto) (0.00-0.20) K/uL Immature Gran # (Auto) (0.01-0.20) K/uL VBG pH 7.25 L (7.36-7.41) VBG pCO2 61 H (38-50) mmHg VBG pO2 22 mmHg VBG HCO3 27 mmol/L VBG O2 Saturation < 60.0 % VBG Base Excess -1.7 mEq/L Sodium (136-145) mmol/L Potassium (3.5-5.1) mmol/L Chloride (98-107) mmol/L Carbon Dioxide (21-32) mmol/L Anion Gap (3-11) BUN (6-23) mg/dl Creatinine (0.6-1.4) mg/dl Est Cr Clr Drug Dosing ml/min Est GFR ( Amer) ml/min Est GFR (Non-Af Amer) ml/min BUN/Creatinine Ratio (10-20) Glucose (70-99(Fasting)) mg/dl POC Glucose 528 H* (70-99) mg/dl Lactate 3.6 H* (0.4-2.0) mmol/L Calcium (8.6-10.3) mg/dl Magnesium (1.7-2.4) mg/dl Total Bilirubin (0.2-1.0) mg/dl AST (13-39) U/L ALT (7-52) U/L Alkaline Phosphatase (34-104) U/L Troponin I High Sens (0-20) pg/ml Total Protein (6.0-8.3) gm/dl Albumin (3.4-5.0) gm/dl Globulin (2.5-4.0) gm/dl Albumin/Globulin Ratio (0.9-2) TSH (0.300-4.500) uIu/ml Urine Color Urine Appearance (Clear) Urine pH (4.5-7.5) Ur Specific Clover (1.000-1.030) Urine Protein (Negative) Urine Glucose (UA) (Negative) Urine Ketones (Negative) Urine Blood (Negative) Urine Nitrite (Negative) Urine Bilirubin (Negative) Urine Urobilinogen (Negative) Ur Leukocyte Esterase (Negative) Adenovirus (PCR) (NotDetected) B. pertussis DNA (PCR) (NotDetected) B.parapertussis DNA PCR (NotDetected) C. pneumoniae DNA (PCR) (NotDetected) Coronavirus OC43 (PCR) (NotDetected) Coronavirus HKU1 (PCR) (NotDetected) Coronavirus 229E (PCR) (NotDetected) SARS-CoV-2 (PCR) (NotDetected) Coronavirus NL63 (PCR) (NotDetected) Human Metapneumovir PCR (NotDetected) Influenza Type A (PCR) (NotDetected) Influenza Type B (PCR) (NotDetected) M. pneumoniae (PCR) (NotDetected) Parainfluenza 1 (PCR) (NotDetected) Parainfluenza 2 (PCR) (NotDetected) Parainfluenza 3 (PCR) (NotDetected) Parainfluenza 4 (PCR) (NotDetected) RSV (PCR) (NotDetected) Entero/Rhino (PCR) (NotDetected) 04/29/23 04/29/23 04/29/23 Range/Units 11:33 13:21 14:08 WBC (4.8-10.8) K/ul RBC (4.70-6.10) M/uL Hgb (14.0-18.0) g/dl Hct (42.0-52.0) % MCV (80.0-100.0) fL MCH (25.0-34.0) pg MCHC (32.0-36.0) g/dL RDW Std Deviation (36.4-46.3) fL RDW Coeff of Pema (11.5-14.5) % Plt Count (130-400) K/uL MPV (9.4-12.4) fL Immature Gran % (Auto) % Neut % (Auto) % Lymph % (Auto) % [place] % (Auto) % Eos % (Auto) % Baso % (Auto) % Neut # (Auto) (1.40-6.50) K/uL Lymph # (Auto) (1.20-3.40) K/uL [place] # (Auto) (0.11-0.59) K/uL Eos # (Auto) (0.00-0.50) K/uL Baso # (Auto) (0.00-0.20) K/uL Immature Gran # (Auto) (0.01-0.20) K/uL VBG pH (7.36-7.41) VBG pCO2 (38-50) mmHg VBG pO2 mmHg VBG HCO3 mmol/L VBG O2 Saturation % VBG Base Excess mEq/L Sodium (136-145) mmol/L Potassium (3.5-5.1) mmol/L Chloride (98-107) mmol/L Carbon Dioxide (21-32) mmol/L Anion Gap (3-11) BUN (6-23) mg/dl Creatinine (0.6-1.4) mg/dl Est Cr Clr Drug Dosing ml/min Est GFR ( Amer) ml/min Est GFR (Non-Af Amer) ml/min BUN/Creatinine Ratio (10-20) Glucose (70-99(Fasting)) mg/dl POC Glucose (70-99) mg/dl Lactate 2.4 H* (0.4-2.0) mmol/L Calcium (8.6-10.3) mg/dl Magnesium (1.7-2.4) mg/dl Total Bilirubin (0.2-1.0) mg/dl AST (13-39) U/L ALT (7-52) U/L Alkaline Phosphatase (34-104) U/L Troponin I High Sens (0-20) pg/ml Total Protein (6.0-8.3) gm/dl Albumin (3.4-5.0) gm/dl Globulin (2.5-4.0) gm/dl Albumin/Globulin Ratio (0.9-2) TSH (0.300-4.500) uIu/ml Urine Color Yellow Urine Appearance Clear (Clear) Urine pH 5.0 (4.5-7.5) Ur Specific Clover 1.034 H (1.000-1.030) Urine Protein Negative (Negative) Urine Glucose (UA) 3+ H (Negative) Urine Ketones 1+ H (Negative) Urine Blood Negative (Negative) Urine Nitrite Negative (Negative) Urine Bilirubin Negative (Negative) Urine Urobilinogen Negative (Negative) Ur Leukocyte Esterase Negative (Negative) Adenovirus (PCR) Not Detected (NotDetected) B. pertussis DNA (PCR) Not Detected (NotDetected) B.parapertussis DNA PCR Not Detected (NotDetected) C. pneumoniae DNA (PCR) Not Detected (NotDetected) Coronavirus OC43 (PCR) Not Detected (NotDetected) Coronavirus HKU1 (PCR) Not Detected (NotDetected) Coronavirus 229E (PCR) Not Detected (NotDetected) SARS-CoV-2 (PCR) Not Detected (NotDetected) Coronavirus NL63 (PCR) Not Detected (NotDetected) Human Metapneumovir PCR Not Detected (NotDetected) Influenza Type A (PCR) Not Detected (NotDetected) Influenza Type B (PCR) Not Detected (NotDetected) M. pneumoniae (PCR) Not Detected (NotDetected) Parainfluenza 1 (PCR) Not Detected (NotDetected) Parainfluenza 2 (PCR) Not Detected (NotDetected) Parainfluenza 3 (PCR) Not Detected (NotDetected) Parainfluenza 4 (PCR) Not Detected (NotDetected) RSV (PCR) Not Detected (NotDetected) Entero/Rhino (PCR) Not Detected (NotDetected) 04/29/23 Range/Units 14:44 WBC (4.8-10.8) K/ul RBC (4.70-6.10) M/uL Hgb (14.0-18.0) g/dl Hct (42.0-52.0) % MCV (80.0-100.0) fL MCH (25.0-34.0) pg MCHC (32.0-36.0) g/dL RDW Std Deviation (36.4-46.3) fL RDW Coeff of Pema (11.5-14.5) % Plt Count (130-400) K/uL MPV (9.4-12.4) fL Immature Gran % (Auto) % Neut % (Auto) % Lymph % (Auto) % [place] % (Auto) % Eos % (Auto) % Baso % (Auto) % Neut # (Auto) (1.40-6.50) K/uL Lymph # (Auto) (1.20-3.40) K/uL [place] # (Auto) (0.11-0.59) K/uL Eos # (Auto) (0.00-0.50) K/uL Baso # (Auto) (0.00-0.20) K/uL Immature Gran # (Auto) (0.01-0.20) K/uL VBG pH (7.36-7.41) VBG pCO2 (38-50) mmHg VBG pO2 mmHg VBG HCO3 mmol/L VBG O2 Saturation % VBG Base Excess mEq/L Sodium (136-145) mmol/L Potassium (3.5-5.1) mmol/L Chloride (98-107) mmol/L Carbon Dioxide (21-32) mmol/L Anion Gap (3-11) BUN (6-23) mg/dl Creatinine (0.6-1.4) mg/dl Est Cr Clr Drug Dosing ml/min Est GFR ( Amer) ml/min Est GFR (Non-Af Amer) ml/min BUN/Creatinine Ratio (10-20) Glucose (70-99(Fasting)) mg/dl POC Glucose 402 H* (70-99) mg/dl Lactate (0.4-2.0) mmol/L Calcium (8.6-10.3) mg/dl Magnesium (1.7-2.4) mg/dl Total Bilirubin (0.2-1.0) mg/dl AST (13-39) U/L ALT (7-52) U/L Alkaline Phosphatase (34-104) U/L Troponin I High Sens (0-20) pg/ml Total Protein (6.0-8.3) gm/dl Albumin (3.4-5.0) gm/dl Globulin (2.5-4.0) gm/dl Albumin/Globulin Ratio (0.9-2) TSH (0.300-4.500) uIu/ml Urine Color Urine Appearance (Clear) Urine pH (4.5-7.5) Ur Specific Clover (1.000-1.030) Urine Protein (Negative) Urine Glucose (UA) (Negative) Urine Ketones (Negative) Urine Blood (Negative) Urine Nitrite (Negative) Urine Bilirubin (Negative) Urine Urobilinogen (Negative) Ur Leukocyte Esterase (Negative) Adenovirus (PCR) (NotDetected) B. pertussis DNA (PCR) (NotDetected) B.parapertussis DNA PCR (NotDetected) C. pneumoniae DNA (PCR) (NotDetected) Coronavirus OC43 (PCR) (NotDetected) Coronavirus HKU1 (PCR) (NotDetected) Coronavirus 229E (PCR) (NotDetected) SARS-CoV-2 (PCR) (NotDetected) Coronavirus NL63 (PCR) (NotDetected) Human Metapneumovir PCR (NotDetected) Influenza Type A (PCR) (NotDetected) Influenza Type B (PCR) (NotDetected) M. pneumoniae (PCR) (NotDetected) Parainfluenza 1 (PCR) (NotDetected) Parainfluenza 2 (PCR) (NotDetected) Parainfluenza 3 (PCR) (NotDetected) Parainfluenza 4 (PCR) (NotDetected) RSV (PCR) (NotDetected) Entero/Rhino (PCR) (NotDetected) Administered Medications Discontinued Medications Sodium Chloride (Nss) 1,000 mls @ 999 mls/hr IV .Q1H1M PEDRO Stop: 04/29/23 12:15 Last Infusion: 04/29/23 12:08 Dose: 0 mls/hr Documented By: Admin: 04/29/23 11:15 Dose: 999 mls/hr Documented By: EMILEE Sodium Chloride (Nss) 1,000 mls @ 999 mls/hr IV .Q1H1M ONE Stop: 04/29/23 12:55 Last Infusion: 04/29/23 13:09 Dose: 0 mls/hr Documented By: Admin: 04/29/23 12:08 Dose: 999 mls/hr Documented By: CHRISTOPHER Insulin Human Regular (Novolin-R Insulin Per Unit Charge) 10 units IV NOW STA Stop: 04/29/23 13:13 Last Admin: 04/29/23 14:05 Dose: 10 units Documented By: CHRISTOPHER Co-signed By: JOVANI Ondansetron HCl (Ondansetron Inj 2 Mg/Ml 2 Ml Vial) 4 mg IV NOW STA Stop: 04/29/23 11:19 Last Admin: 04/29/23 11:49 Dose: 4 mg Documented By: EMILEE Imaging Data Radiologist's Impression: Chest X-Ray 04/29/23 11:11 XR chest 1V portable CLINICAL HISTORY: weakness TECHNIQUE: Single frontal radiograph of the chest was obtained. Comparison: Comparison is made to chest radiograph 09/04/2022 FINDINGS: No lines and tubes are seen. The cardiomediastinal silhouette is normal. The lungs are clear. No evidence of pleural effusion or pneumothorax. IMPRESSION: No acute chest disease. ACT 112: Negative or not required by law. Electronically signed by: Mango Moreno M.D. 04/29/2023 12:25 PM Abdomen/Pelvis CT 04/29/23 12:39 CT abd pelvis wo con CLINICAL HISTORY: abdominal pain; N/V/D TECHNIQUE: Helical axial images of the abdomen and pelvis were obtained. Automated dose lowering techniques and/or adjustment according to patient size were utilized for this exam. This exam was performed without intravenous contrast. CT DOSE: 1370.84 mGy.cm COMPARISON: None available at the time of this dictation. FINDINGS: Lower chest: Bibasilar atelectasis versus scarring is seen. Liver: Unremarkable. No focal lesions are seen. Gallbladder and biliary tree: Patient is status post cholecystectomy. Physiologic prominence of the biliary ducts is noted. Pancreas: Unremarkable, no focal lesions. Spleen: Unremarkable. 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 Kidneys and ureters: Nonobstructive nephrolithiasis is seen. Bladder: Unremarkable. Reproductive organs: Unremarkable. Bowel: The appendix is normal. Lymph nodes Retroperitoneal: Subcentimeter lymph nodes are noted. Pelvic: Subcentimeter lymph nodes are noted. Mesenteric: Unremarkable. Peritoneum: Vascular prominence and soft tissue stranding is seen about multiple loops of the small bowel most prominently in the left abdomen. Trace ascites is seen most prominent about the liver. Vessels: Unremarkable. Abdominal wall: Unremarkable. Bones: Degenerative changes in the visualized spine. IMPRESSION: Nonspecific vascular prominence and soft tissue stranding about the left small bowel loops. Nonspecific lymphadenopathy. Findings may reflect infectious/inflammatory process versus mild fluid overload. No other abnormalities. ACT 112: Negative or not required by law. Electronically signed by: Mango Moreno M.D. 04/29/2023 2:22 PM Discharge Plan Visit Data Chief Complaint: Hyperglycemia Stated Complaint: HYPERGLYCEMIA, WEAKNESS ED Provider: Shakira Bernabe Discharge Problem: Vomiting, Abdominal pain, Acidosis, lactic, Hyperglycemia, DKA (diabetic ket oacidosis) Forms Stand Alone Forms: My Powered Prescriptions Prescriptions: No Action Duloxetine HCl (Cymbalta) 30 MG capsule 30 mg PO DAILY Qty: 0 Lisinopril (Zestril) 10 MG tablet 10 mg PO DAILY Qty: 0 Mirtazapine Soltab (Remeron Soltab) 15 MG SOLTAB 15 mg PO HS Qty: 0 INSULIN HUMAN ISOPHAN/REGULAR (Humulin 70/30) INJECTION 7 unit subcut BID Qty: 1 Referrals Referrals: Kendall DONOVAN [Primary Care Provider] -
[2023-04-29 11:45] LABS: Base Excess VBG -1.7 mEq/L; HCO3 VBG 27 mmol/L; Oxygen Saturation VBG < 60.0 %; PCO2 VBG 61 mmHg (38-50); PO2 VBG 22 mmHg; pH VBG 7.25 (7.36-7.41)
[2023-04-29] MEDS ORDERED: SODIUM CHLORIDE 0.9% 1,000 ML IV ONE (11:55)
[2023-04-29 12:00] LABS: Basophils # (auto) 0.03 K/uL (0.00-0.20); Basophils % (auto) 0.2 %; Eosinophils # (auto) 0.01 K/uL (0.00-0.50); Eosinophils % (auto) 0.1 %; Hematocrit (blood only) 46.3 % (42.0-52.0); Hemoglobin 15.6 g/dl (14.0-18.0); Immature Granulocytes % (auto) 0.6 %; Lymphocytes # (auto) 1.76 K/uL (1.20-3.40); Lymphocytes % (auto) 10.9 %; Mean Corpuscular Hemoglobin 27.2 pg (25.0-34.0); Mean Corpuscular Hgb Conc 33.7 g/dL (32.0-36.0); Mean Corpuscular Volume 80.7 fL (80.0-100.0); Mean Platelet Volume 10.7 fL (9.4-12.4); Monocytes # (auto) 0.56 K/uL (0.11-0.59); Monocytes % (auto) 3.5 %; Neutrophils # (auto) 13.72 K/uL (1.40-6.50); Neutrophils % (auto) 84.7 %; Platelet Count 236 K/uL (130-400); Red Blood Count 5.74 M/uL (4.70-6.10); White Blood Count 16.18 K/ul (4.8-10.8)
--- NOTE | 2023-04-29 12:26 | XRay Report ---
XR chest 1V portable CLINICAL HISTORY: weakness TECHNIQUE: Single frontal radiograph of the chest was obtained. Comparison: Comparison is made to chest radiograph 09/04/2022 FINDINGS: No lines and tubes are seen. The cardiomediastinal silhouette is normal. The lungs are clear. No evid ence of pleural effusion or pneumothorax. IMPRESSION: No acute chest disease. ACT 112: Negative or not required by law. Electronically signed by: Mango Moreno M.D. 04/29/2023 12:25 PM
[2023-04-29 12:35] LABS: Alanine Aminotransferase 11 U/L (7-52); Albumin Level 3.7 gm/dl (3.4-5.0); Alkaline Phosphatase 96 U/L (34-104); Anion Gap 11 (3-11); BUN Creatinine Ratio 14.4 (10-20); Bilirubin,Total 0.5 mg/dl (0.2-1.0); Blood Urea Nitrogen 15 mg/dl (6-23); Calcium 9.5 mg/dl (8.6-10.3); Carbon Dioxide 23 mmol/L (21-32); Chloride 97 mmol/L (98-107); Creatinine Clr Calc Pharmacy 86.1 ml/min; Est GFR (African American) 91.3 ml/min; Est GFR (Non-African American) 78.8 ml/min; Globulin 3.7 gm/dl (2.5-4.0); Glucose 557 mg/dl (70-99(Fasting)); Sodium 131 mmol/L (136-145); Total Protein 7.4 gm/dl (6.0-8.3); Troponin I High Sensitivity 4.2 pg/ml (0-20)
[2023-04-29 12:56] LABS: Thyroid Stimulating Hormone 1.664 uIu/ml (0.300-4.500)
[2023-04-29 13:10] LABS: Potassium 4.2 mmol/L (3.5-5.1)
[2023-04-29 13:11] LABS: Adenovirus PCR Not Detected (NotDetected); Bordetella parapertussis PCR Not Detected (NotDetected); Bordetella pertussis PCR Not Detected (NotDetected); Chlamydia pneumoniae PCR Not Detected (NotDetected); Coronavirus 229E PCR Not Detected (NotDetected); Coronavirus CoV-2 (COVID19)PCR Not Detected (NotDetected); Coronavirus HKU1 PCR Not Detected (NotDetected); Coronavirus NL63 PCR Not Detected (NotDetected); Coronavirus OC43PCR Not Detected (NotDetected); Human Metapneumovirus PCR Not Detected (NotDetected); Influenza A PCR Not Detected (NotDetected); Influenza B PCR Not Detected (NotDetected); Mycoplasma pneumoniae PCR Not Detected (NotDetected); Parainfluenza Virus 1 PCR Not Detected (NotDetected); Parainfluenza Virus 2 PCR Not Detected (NotDetected); Parainfluenza Virus 3 PCR Not Detected (NotDetected); Parainfluenza Virus 4 PCR Not Detected (NotDetected); Respiratory Syncytial VirusPCR Not Detected (NotDetected); Rhinovirus/Enterovirus PCR Not Detected (NotDetected)
[2023-04-29] MEDS ORDERED: NovoLIN-R INSULIN PER UNIT CHARGE IV STA (13:12)
--- NOTE | 2023-04-29 14:24 | CT Scan Report ---
CT abd pelvis wo con CLINICAL HISTORY: abdominal pain; N/V/D TECHNIQUE: Helical axial images of the abdomen and pelvis were obtained. Automated dose lowering tech niques and/or adjustment according to patient size were utilized for this exam. This exam was perfor med without intravenous contrast. CT DOSE: 1370.84 mGy.cm COMPARISON: None available at the time of this dictation. FINDINGS: Lower chest: Bibasilar atelectasis versus scarring is seen. Liver: Unremarkable. No focal lesions are seen. Gallbladder and biliary tree: Patient is status post cholecystectomy. Physiologic prominence of the b iliary ducts is noted. Pancreas: Unremarkable, no focal lesions. Spleen: Unremarkable. 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 Kidneys and ureters: Nonobstructive nephrolithiasis is seen. Bladder: Unremarkable. Reproductive organs: Unremarkable. Bowel: The appendix is normal. Lymph nodes Retroperitoneal: Subcentimeter lymph nodes are noted. Pelvic: Subcentimeter lymph nodes are noted. Mesenteric: Unremarkable. Peritoneum: Vascular prominence and soft tissue stranding is seen about multiple loops of the small b owel most prominently in the left abdomen. Trace ascites is seen most prominent about the liver. Vessels: Unremarkable. Abdominal wall: Unremarkable. Bones: Degenerative changes in the visualized spine. IMPRESSION: Nonspecific vascular prominence and soft tissue stranding about the left small bowel loops. Nonspecif ic lymphadenopathy. Findings may reflect infectious/inflammatory process versus mild fluid overload. No other abnormalities. ACT 112: Negative or not required by law. Electronically signed by: Mango Moreno M.D. 04/29/2023 2:22 PM
[2023-04-29 14:39] LABS: Appearance Urine Clear (Clear); Bilirubin Urine Negative (Negative); Blood Urine Negative (Negative); Color Urine Yellow; Glucose Urine UA 3+ (Negative); Ketones Urine 1+ (Negative); Leukocyte Esterase Urine Negative (Negative); Nitrite Urine Negative (Negative); Protein Urine Negative (Negative); Specific Gravity Urine 1.034 (1.000-1.030); Urobilinogen Urine Negative (Negative)
--- NOTE | 2023-04-29 14:39 | History & Physical Report ---
Date of Service April 29, 2023 Assessment & Plan (1) Type 2 diabetes mellitus with hyperosmolarity, uncontrolled: Plan: Type 2 diabetes mellitus, acute hyperglycemia with HHS, poorly controlled in the setting of noncompliance Patient is hyperglycemic with mildly acidotic with an elevated lactate on admission. He does not have an elevated anion gap, and bicarb is normal. denies infectious symptoms. CT of the abdomen with some vascular prominence/soft tissue stranding of small bowel loops? Inflammatory versus infectious, no obvious appendicitis/diverticulitis. Chest x-ray is clear. Patient reports that he never makes morning doses of insulin, and only occasionally goes to evening doses. He does take his metformin in the evening which she is allowed to keep in his cell Suspect patient is hyperglycemic with last A1c of 7.9% in November with poor compli ance rather than inadequate dosing BSG is downtrending on reassessment, 402 following fluids and 10 units of insulin Patient with tacky mucous membranes and continues to appear volume contracted. 104 kg, received 2 L of fluid 1 additional liter crystalloid ordered. LR. Prior to arrival in ER he was given 30 units of Lantus by the [facility] and 12 units of insulin regular. He received 10 units of IV insulin on arrival to ER. He is downtrending with a BSG of 400 from 550 on 240 reassessment Repeat BSG check hourly, will give 1 additional dose if indicated around 4 PM or if BSG up trends. If he continues to improve and --> bsg less than 300 we will continue basal bolus insulin. If up trends can initiate insulin GGT for [facility] Pharm[facility] glycemic consult following No ROOPA Potassium hemolyzed, redrawn. Supplement as needed VBG every 4 hours x2 Oral metformin temporarily held No recent steroid (2) Opioid use disorder in remission: Plan: History of substance use disorder Continue Suboxone 16 mg total daily dose, will give as 8 mg twice daily while inpatient (3) HTN (hypertension): Plan: Hypertension Continue lisinopril (4) Anxiety and depression: Plan: Anxiety/depression Continue Cymbalta 90 mg total dose daily (5) Hypothyroidism: Plan: Hypothyroidism Continue Synthroid (6) Venous stasis: Plan: Venous stasis Patient [facility] reported venous stasis on Lasix 40 mg once daily as needed, but no history of heart failure/OH/CHF. Held 2/2 clinical volume depletion History of Present Illness Primary Care Provider: ZION Carrion is a 57-year-old male inmate with a past medical history of asthma, hypertension, hyperlipidemia, GERD, hypothyroidism, prior opioid use disorder who presented to the ER after feeling fatigued with several episodes of nonbloody/nonbilious emesis since waking up 04/29. BSG reportedly elevated at [facility], received Lantus and 12 units short acting insulin and was referred to ER for additional care. Patient is not generally compliant with his insulin regiment, and reports he does not take this reliably. While in the ER he has a leukocytosis without left shift, VBG 7.2 /, normal anion gap, normal creatinine, elevated BSG of over 500, and lactate initially at 3.6 downtrending following fluids to 2.4. BioFire was negative and CT of the abdomen/pelvis showed some vascular prominence and soft tissue stranding of the bowel loops? Inflammatory versus infectious, no appendicitis or diverticulitis noted, s/p cholecystectomy, and bladder unremarkable. Chest x-ray with no acute finding/no evidence of pneumonia. EKG on admission is normal sinus rhythm, no territorial signs of ischemia meds reviewed by phone with [facility]: Albuterol PRN q4hasa 81 mg daily 40mg atorvastatin daily suboxone 8mg BID (normally taken as daily in half-way) cymbalta 30mg hs, 60 hs total of 90mg lasix 40mg once daily --> edema no history of heart failure 30 units long acting evening lantus insulin regular sliding scale based on meals trileptal 1 tab BID 300mg levothyroxine 50mcg once daily lisinopril 5mg once daily metformin 850mg BID No steroid use recently Last A1C November 2022 7.9% Patient reports that for last few days he has felt fatigued, and since waking up this morning has had vomiting with minimal/mild abdominal pain. No blood or bile. No diarrhea. Denies fevers or chills. Denies cough. Denies rashes. He denies burning with urination, reports he was peeing more than normal the last few days and has not peed since arriving in the hospital. He reports he feels improved following fluids in the ER. He is not a good historian of medication, reports he is not sure what his full med list is but does note he takes metformin reliably but misses many doses of insulin "Peeing like crazy last few days" "I don't know how much insulin I"m suppsoed to take. I miss days at a time. Sometimes goes to evening doses, never make morning doses." Suboxone 8mg twice a day. EDSON in remission. Medical History: Reviewed Medications: Reviewed Surgical History: Reviewed Family history: Reviewed Allergies: Reviewed Social History: Reviewed Code Status: Full Allergies Allergy/AdvReac Type Severity Reaction Status Date / Time shellfish derived Allergy Unknown UNKNOWN Verified 09/22/17 01:52 PENICILLIN Allergy Unknown UNKNOWN Uncoded 09/22/17 01:51 Home Medications Medication Instructions Recorded Confirmed Type duloxetine 30 mg capsule,delayed 30 mg PO HS ##0 09/22/17 04/29/23 History release lisinopril 5 mg tablet 5 mg PO DAILY #0 tabs 09/22/17 04/29/23 History albuterol sulfate 90 mcg/actuation 2 puff inhalation QID PRN SOB 04/29/23 04/29/23 History aerosol inhaler aspirin 81 mg tablet,delayed 81 mg PO DAILY 04/29/23 04/29/23 History release atorvastatin 40 mg tablet 40 mg PO DAILY 04/29/23 04/29/23 History buprenorphine 8 mg-naloxone 2 mg 2 tab sublingual DAILY 04/29/23 04/29/23 History sublingual tablet coal tar 2 % shampoo (Tarsum 1 applic topical DAILY 04/29/23 04/29/23 History Professional) duloxetine 60 mg capsule,delayed 60 mg PO HS 04/29/23 04/29/23 History release furosemide 40 mg tablet (Lasix) 40 mg PO DAILY 04/29/23 04/29/23 History insulin glargine 100 unit/mL 30 unit subcut PM 04/29/23 04/29/23 History subcutaneous solution insulin regular human 100 unit/mL 1 sliding scale dose subcut 04/29/23 04/29/23 History injection solution (Novolin R USEASDIRECTD Regular U-100 Insulin) levothyroxine 50 mcg tablet 50 mcg PO DAILY 04/29/23 04/29/23 History metformin 850 mg tablet 850 mg PO BID 04/29/23 04/29/23 History oxcarbazepine 300 mg tablet 300 mg PO BID 04/29/23 04/29/23 History (Trileptal) Past Med/Surg History Social History Smoking Status: Current every day smoker Tobacco Type: Cigarettes Preferred Language: Cypriot Feels Safe at Home: Yes Physical Exam Physical Exam: General: A&Ox3. NAD. Cooperative. HEENT: Atraumatic, normocephalic. Vision/hearing grossly intact. Mucous membranes tacky Pulm: CTAB A&P. -wheezes, -rales, -rhonchi. Symmetrical chest rise. No increased work of breathing. No respiratory distress. Cardiac: RRR, -mrg. Radial pulses intact and symmetrical. Abdominal: Minimally tender at epigastrium. No rebound tenderness nontender, nondistended, soft. BS present. Extremities: Warm, dry. Trace pitting edema, improved from normal baseline per patient. Sensation soft touch intact in hands and feet. Strength exam limited by shackles, but optometry doctor strength and ankle dorsiflexion/plantarflexion are grossly intact Results & Data Results & Data Vital Signs (Past 12 Hours) Vital Signs Temp Pulse Resp BP Pulse Ox O2 Del Method 04/29/23 14:30 85 19 97 Room Air 04/29/23 14:30 114/74 04/29/23 14:11 83 17 99 Room Air 04/29/23 14:11 100/72 04/29/23 13:00 81 20 96 Room Air 04/29/23 13:00 128/84 04/29/23 12:30 82 19 04/29/23 12:30 99/62 L 04/29/23 12:08 85 17 97 Room Air 04/29/23 12:08 110/67 04/29/23 12:00 87 20 96 Room Air 04/29/23 11:31 99 Room Air 04/29/23 11:31 36.5 C 101 H 20 116/87 99 Room Air PG Care Time/CCT Total # of Minutes Spent Total Time Spent with Patient: Total time spent is greater than 50% in coordination of care (as documented) at patient's floor/unit and/or counseling patient: Coding Level of Care Code 96421 INT INP/OBS CARE 3/75MIN Diagnoses Type 2 diabetes mellitus with hyperosmolarity, uncontrolled E11.00; E11.65 Opioid use disorder in remission F11.91 HTN (hypertension) I10 Anxiety and depression F41.9; F32.A Hypothyroidism E03.9 Venous stasis I87.8
[2023-04-29] MEDS ORDERED: LACTATED RINGER'S 1,000 ML IV ONE (15:23)
[2023-04-29] MEDS ORDERED: CARBOHYDRATES FOR HYPOGLYCEMIA PO PRN (15:26)
[2023-04-29] MEDS ORDERED: GLUCOSE 40% GEL 15 GM TUBE PO PRN (15:26)
[2023-04-29] MEDS ORDERED: GLUCOSE 10 TAB/TUBE PO PRN (15:26)
[2023-04-29] MEDS ORDERED: GLUCAGON FOR INJ 1 MG VIAL SQ PRN (15:26)
[2023-04-29] MEDS ORDERED: DEXTROSE 50% 50 ML SYRINGE IV PRN (15:26)
[2023-04-29] MEDS ORDERED: PLASMA-LYTE A 1,000 ML IV SCH (19:00)
[2023-04-29] MEDS ORDERED: Nursing to Pharmacy Communication SCH (19:30)
[2023-04-29] MEDS ORDERED: ACETAMINOPHEN 500 MG TAB PO PRN (19:32)
[2023-04-29] MEDS: ENOXAPARIN INJ 40 MG/0.4 ML SYR SQ SCH (19:53)
[2023-04-29] MEDS: metroNIDAZOLE 500 MG/100 ML BAG IV SCH (19:54)
[2023-04-29] MEDS: cefTRIAXone SODIUM 2,000 MG in DEXTROSE 5 % MINI-B 50 ML IV SCH (19:54)
[2023-04-29] MEDS: OXcarbazepine 150 MG TABLET PO SCH (19:54)
[2023-04-29] MEDS: DULoxetine HCL 30 MG CAP PO SCH (19:54)
[2023-04-29] MEDS: BUPRENORPHINE/NALOXONE 8/2 MG TAB SL SCH (20:01)
[2023-04-29] MEDS ORDERED: ondansetron HCL 4 MG in DEXTROSE 5% 50 ML IV PRN (20:44)
[2023-04-29] MEDS ORDERED: ONDANSETRON INJ 2 MG/ML 2 ML VIAL IV PRN (20:56)
[2023-04-29] MEDS ORDERED: INSULIN ASPART PER UNIT CHARGE SC SCH (21:00)
[2023-04-29] MEDS: INSULIN ASPART PER UNIT CHARGE SC SCH (23:13)
--- NOTE | 2023-04-29 23:30 | Electrocardiogram Report ---
Test Reason : Blood Pressure : / mmHG Vent. Rate : 096 BPM Atrial Rate : 096 BPM P-R Int : 130 ms QRS Dur : 086 ms QT Int : 364 ms P-R-T Axes : 065 011 016 degrees QTc Int : 459 ms Normal sinus rhythm Normal ECG When compared with ECG of 04-SEP-2022 11:44, No significant change was found Confirmed by Darwin Hammond ([id number]) on 04/29/2023 11:30:04 PM Referred By: Confirmed By:Darwin Hammond
[2023-04-30] MEDS: metroNIDAZOLE 500 MG/100 ML BAG IV SCH ×3 (03:20→18:46)
[2023-04-30] MEDS: INSULIN ASPART PER UNIT CHARGE SC SCH ×5 (05:59→21:06)
[2023-04-30] MEDS: LEVOTHYROXINE SODIUM 50 MCG TABLET PO SCH (06:00)
[2023-04-30 06:59] LABS: Calcium 8.4 mg/dl (8.6-10.3); Creatinine Clr Calc Pharmacy 148.7 ml/min; Est GFR (African American) 127.6 ml/min; Est GFR (Non-African American) 110.1 ml/min; Magnesium 1.8 mg/dl (1.7-2.4); Potassium 3.7 mmol/L (3.5-5.1)
[2023-04-30 07:21] LABS: Basophils # (auto) 0.03 K/uL (0.00-0.20); Basophils % (auto) 0.4 %; Eosinophils # (auto) 0.05 K/uL (0.00-0.50); Eosinophils % (auto) 0.6 %; Hematocrit (blood only) 34.2 % (42.0-52.0); Hemoglobin 11.5 g/dl (14.0-18.0); Immature Granulocytes # (auto) 0.01 K/uL (0.01-0.20); Immature Granulocytes % (auto) 0.1 %; Lymphocytes # (auto) 3.32 K/uL (1.20-3.40); Lymphocytes % (auto) 40.8 %; Mean Corpuscular Hemoglobin 27.1 pg (25.0-34.0); Mean Corpuscular Hgb Conc 33.6 g/dL (32.0-36.0); Mean Corpuscular Volume 80.5 fL (80.0-100.0); Mean Platelet Volume 10.3 fL (9.4-12.4); Monocytes # (auto) 0.36 K/uL (0.11-0.59); Monocytes % (auto) 4.4 %; Neutrophils # (auto) 4.37 K/uL (1.40-6.50); Neutrophils % (auto) 53.7 %; Platelet Count 195 K/uL (130-400); RDW Coefficient of Variation 14.1 % (11.5-14.5); RDW Standard Deviation 40.3 fL (36.4-46.3); Red Blood Count 4.25 M/uL (4.70-6.10); White Blood Count 8.14 K/ul (4.8-10.8)
--- NOTE | 2023-04-30 07:53 | Hospitalist Progress Note ---
Date of Service April 30, 2023 Assessment & Plan (1) Type 2 diabetes mellitus with hyperosmolarity, uncontrolled: Plan: Type 2 diabetes mellitus, acute hyperglycemia with HHS, poorly controlled in the setting of noncompliance Patient presented with hyperglycemia, mildly acidotic had an elevated lactate. No elevated anion gap, and bicarb normal. no obvious signs of infection CT of the abdomen with some vascular prominence/soft tissue stranding of small bowel loops? Inflammatory versus infectious, no obvious appendicitis/diverticulitis. Chest x-ray is clear. . Prior to arrival in ER he was given 30 units of Lantus by the [facility] and 12 units of insulin regular. He received 10 units of IV insulin on arrival to ER. He is downtrending with a BSG of 400 from 550 on 240 reassessment given compliance issues will attempt to convert to common oral medications, starting glyburide and metformin, will keep sliding scale without carb ratio and stop basal insulin (2) Opioid use disorder in remission: Plan: History of substance use disorder Continue Suboxone 16 mg total daily dose, will give as 8 mg twice daily while inpatient (3) HTN (hypertension): Plan: Hypertension Continue lisinopril (4) Anxiety and depression: Plan: Anxiety/depression Continue Cymbalta 90 mg total dose daily Plan Pt states he will be out of senior living in 18 days and will move to [place], 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 I councelled him that this was not a good idea Admission and Anticipated Discharge Date Admission Date: April 29, 2023 Subjective patient was in good spirits eating. We discussed his previous insulin use states that he has just been diabetic for few years was started directly on insulin while in the present/on a regular basis. He says he can take his oral medications in his cell by his own regard if he needs to he denies having any understanding of being previously on oral medications Physical Exam Physical Exam: awake alert and appropriate. Card exam is regular without murmurs lungs are clear without wheezes or crackles abdomen is NABS soft and nontender Results & Data Results & Data Vital Signs (Past 12 Hours) Vital Signs Temp Pulse Pulse Resp BP Pulse Ox O2 Del Method 04/30/23 07:21 Room Air 04/30/23 06:01 74 04/30/23 04:17 97.9 F 75 18 135/84 100 Room Air 04/30/23 00:02 98.4 F 74 16 119/80 95 Room Air 04/29/23 23:56 73 Laboratory Results reviewed CBC reviewed chemistry PG Care Time/CCT Total # of Minutes Spent Total Time Spent with Patient: Total time spent is greater than 50% in coordination of care (as documented) at patient's floor/unit and/or counseling patient: Coding Level of Care Code 18779 SUB INP/OBS CARE 2/35MIN Diagnoses Type 2 diabetes mellitus with hyperosmolarity, uncontrolled E11.00; E11.65 Opioid use disorder in remission F11.91 HTN (hypertension) I10 Anxiety and depression F41.9; F32.A
[2023-04-30] MEDS: lisinopril 5 MG TAB PO SCH (08:45)
[2023-04-30] MEDS: ASPIRIN 81 MG ECTAB PO SCH (08:45)
[2023-04-30] MEDS: ATORVASTATIN 40 MG TAB PO SCH (08:45)
[2023-04-30] MEDS: BUPRENORPHINE/NALOXONE 8/2 MG TAB SL SCH ×2 (08:45→21:06)
[2023-04-30] MEDS: OXcarbazepine 150 MG TABLET PO SCH ×2 (08:45→21:07)
[2023-04-30] MEDS ORDERED: LANTUS PER UNIT CHARGE SQ SCH (09:00)
[2023-04-30] MEDS ORDERED: glyBURIDE 2.5 MG TAB PO ONE (15:17)
[2023-04-30] MEDS: metFORMIN HCL 500 MG TAB PO SCH (17:40)
[2023-04-30] MEDS: cefTRIAXone SODIUM 2,000 MG in DEXTROSE 5 % MINI-B 50 ML IV SCH (18:12)
[2023-04-30] MEDS: ENOXAPARIN INJ 40 MG/0.4 ML SYR SQ SCH (21:06)
[2023-04-30] MEDS: DULoxetine HCL 30 MG CAP PO SCH (21:06)
[2023-05-01] MEDS: metroNIDAZOLE 500 MG/100 ML BAG IV SCH ×2 (02:02→10:21)
[2023-05-01] MEDS: LEVOTHYROXINE SODIUM 50 MCG TABLET PO SCH (05:52)
[2023-05-01] MEDS: metFORMIN HCL 500 MG TAB PO SCH (07:14)
[2023-05-01] MEDS ORDERED: glyBURIDE 5 MG TAB PO SCH (07:30)
[2023-05-01 07:45] LABS: Basophils # (auto) 0.03 K/uL (0.00-0.20); Basophils % (auto) 0.4 %; Eosinophils # (auto) 0.04 K/uL (0.00-0.50); Eosinophils % (auto) 0.5 %; Hematocrit (blood only) 32.9 % (42.0-52.0); Immature Granulocytes # (auto) 0.02 K/uL (0.01-0.20); Immature Granulocytes % (auto) 0.2 %; Lymphocytes # (auto) 3.14 K/uL (1.20-3.40); Lymphocytes % (auto) 36.9 %; Mean Corpuscular Hgb Conc 33.4 g/dL (32.0-36.0); Mean Corpuscular Volume 80.8 fL (80.0-100.0); Mean Platelet Volume 10.7 fL (9.4-12.4); Monocytes # (auto) 0.45 K/uL (0.11-0.59); Monocytes % (auto) 5.3 %; Neutrophils # (auto) 4.83 K/uL (1.40-6.50); Neutrophils % (auto) 56.7 %; Platelet Count 184 K/uL (130-400); RDW Coefficient of Variation 13.9 % (11.5-14.5); Red Blood Count 4.07 M/uL (4.70-6.10); White Blood Count 8.51 K/ul (4.8-10.8)
[2023-05-01 08:01] LABS: BUN Creatinine Ratio 15.9 (10-20); Calcium 8.5 mg/dl (8.6-10.3); Creatinine Clr Calc Pharmacy 129.2 ml/min; Est GFR (African American) 121.3 ml/min; Est GFR (Non-African American) 104.6 ml/min; Potassium 3.6 mmol/L (3.5-5.1)
[2023-05-01] MEDS: INSULIN ASPART PER UNIT CHARGE SC SCH (08:57)
[2023-05-01] MEDS: ASPIRIN 81 MG ECTAB PO SCH (08:58)
[2023-05-01] MEDS: ATORVASTATIN 40 MG TAB PO SCH (08:58)
[2023-05-01] MEDS: lisinopril 5 MG TAB PO SCH (08:58)
[2023-05-01] MEDS: OXcarbazepine 150 MG TABLET PO SCH (08:58)
[2023-05-01] MEDS: BUPRENORPHINE/NALOXONE 8/2 MG TAB SL SCH (09:05)
--- NOTE | 2023-05-01 12:42 | Discharge Summary ---
Date of Service May 01, 2023 Admission HPI Per Admitting Provider Murali is a 57-year-old male inmate with a past medical history of asthma, hypertension, hyperlipidemia, GERD, hypothyroidism, prior opioid use disorder who presented to the ER after feeling fatigued with several episodes of nonbloody/nonbilious emesis since waking up 04/29. BSG reportedly elevated at [facility], received Lantus and 12 units short acting insulin and was referred to ER for additional care. Patient is not generally compliant with his insulin regiment, and reports he does not take this reliably. While in the ER he has a leukocytosis without left shift, VBG 7.2 /, normal anion gap, normal creatinine, elevated BSG of over 500, and lactate initially at 3.6 downtrending following fluids to 2.4. BioFire was negative and CT of the abdomen/pelvis showed some vascular prominence and soft tissue stranding of the bowel loops? Inflammatory versus infectious, no appendicitis or diverticulitis noted, s/p cholecystectomy, and bladder unremarkable. Chest x-ray with no acute finding/no evidence of pneumonia. EKG on admission is normal sinus rhythm, no territorial signs of ischemia meds reviewed by phone with [facility]: Albuterol PRN q4hasa 81 mg daily 40mg atorvastatin daily suboxone 8mg BID (normally taken as daily in [facility]) cymbalta 30mg hs, 60 hs total of 90mg lasix 40mg once daily --> edema no history of heart failure 30 units long acting evening lantus insulin regular sliding scale based on meals trileptal 1 tab BID 300mg levothyroxine 50mcg once daily lisinopril 5mg once daily metformin 850mg BID No steroid use recently Last A1C November 2022 7.9% Patient reports that for last few days he has felt fatigued, and since waking up this morning has had vomiting with minimal/mild abdominal pain. No blood or bile. No diarrhea. Denies fevers or chills. Denies cough. Denies rashes. He denies burning with urination, reports he was peeing more than normal the last few days and has not peed since arriving in the hospital. He reports he feels i mproved following fluids in the ER. He is not a good historian of medication, reports he is not sure what his full med list is but does note he takes metformin reliably but misses many doses of insulin "Peeing like crazy last few days" "I don't know how much insulin I"m suppsoed to take. I miss days at a time. Sometimes goes to evening doses, never make morning doses." Suboxone 8mg twice a day. EDSON in remission. Medical History: Reviewed Medications: Reviewed Surgical History: Reviewed Family history: Reviewed Allergies: Reviewed Social History: Reviewed Code Status: Full Principal Diagnosis HHS from poorly controlled diabetes Discharge Exam awake appropriate and pleasant understands treatment plan card exam is regular lungs are clear Discharge Data Allergies Allergy/AdvReac Type Severity Reaction Status Date / Time Penicillins Allergy Unknown Unknown Verified 04/29/23 18:50 shellfish derived Allergy Unknown UNKNOWN Verified 09/22/17 01:52 Consultations 04/29/23 14:34 ED Decision to Admit Stat Ordered Studies Chest X-Ray 04/29/23 11:11 XR chest 1V portable CLINICAL HISTORY: weakness TECHNIQUE: Single frontal radiograph of the chest was obtained. Comparison: Comparison is made to chest radiograph 09/04/2022 FINDINGS: No lines and tubes are seen. The cardiomediastinal silhouette is normal. The lungs are clear. No evidence of pleural effusion or pneumothorax. IMPRESSION: Electronically signed by: Mango Moreno M.D. 04/29/2023 12:25 PM Abdomen/Pelvis CT 04/29/23 12:39 CT abd pelvis wo con CLINICAL HISTORY: abdominal pain; N/V/D TECHNIQUE: Helical axial images of the abdomen and pelvis were obtained. Automated dose lowering techniques and/or adjustment according to patient size were utilized for this exam. This exam was performed without intravenous contrast. CT DOSE: 1370.84 mGy.cm COMPARISON: None available at the time of this dictation. FINDINGS: Lower chest: Bibasilar atelectasis versus scarring is seen. Liver: Unremarkable. No focal lesions are seen. Gallbladder and biliary tree: Patient is status post cholecystectomy. Physiologic prominence of the biliary ducts is noted. Pancreas: Unremarkable, no focal lesions. Spleen: Unremarkable. 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 Kidneys and ureters: Nonobstructive nephrolithiasis is seen. Bladder: Unremarkable. Reproductive organs: Unremarkable. Bowel: The appendix is normal. Lymph nodes Retroperitoneal: Subcentimeter lymph nodes are noted. Pelvic: Subcentimeter lymph nodes are noted. Mesenteric: Unremarkable. Peritoneum: Vascular prominence and soft tissue stranding is seen about multiple loops of the small bowel most prominently in the left abdomen. Trace ascites is seen most prominent about the liver. Vessels: Unremarkable. Abdominal wall: Unremarkable. Bones: Degenerative changes in the visualized spine. IMPRESSION: Nonspecific vascular prominence and soft tissue stranding about the left small bowel loops. Nonspecific lymphadenopathy. Findings may reflect infectious/inflammatory process versus mild fluid overload. No other abnormalities. Electronically signed by: Mango Moreno M.D. 04/29/2023 2:22 PM Hospital Course (1) Type 2 diabetes mellitus with hyperosmolarity, uncontrolled: Type 2 diabetes mellitus, acute hyperglycemia with HHS, poorly controlled in the setting of noncompliance Patient presented with hyperglycemia, mildly acidotic had an elevated lactate. No elevated anion gap, and bicarb normal. no obvious signs of infection CT of the abdomen with some vascular prominence/soft tissue stranding of small bowel loops? Inflammatory versus infectious, no obvious appendicitis/diverticulitis. Chest x-ray is clear. . Prior to arrival in ER he was given 30 units of Lantus by the [facility] and 12 units of insulin regular. He received 10 units of IV insulin on arrival to ER. He is downtrending with a BSG of 400 from 550 on 240 reassessment given compliance issues initiate common oral medications, starting glyburide 5 mg and metformin 1000mg bid, if need be good rate can be increased significantly also consider other medications versus SGLT2 to improve his glucose control (2) Opioid use disorder in remission: History of substance use disorder Continue Suboxone 16 mg total daily dose, will give as 8 mg twice daily while inpatient (3) HTN (hypertension): Hypertension Continue lisinopril (4) Anxiety and depression: Anxiety/depression Continue Cymbalta 90 mg total dose daily Plan Pt states he will be out of [facility] in 18 days and will move to [place], 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 I councelled him that this was not a good idea Total Time Total Time Spent Total Time Spent (In Minutes): it required greater than 30 minutes to prepare this patient for discharge Discharge Plan Discharge Items [facility] Disposition: [facility] Reason For Visit: HHS, HYPERGLYCEMIA Discharge Diagnosis: hhs uncontrolled diabetes Activity: Per Instructions section Non-emergency contact: Primary Care Provider Call non-emergency contact if: your symptoms worsen Follow-up/Referrals: Kendall DONOVAN [Primary Care Provider] - Diet: Carb Consistent or DM2 Addtl Attending Provider Instructions: we have started some oral medicines to keep his blood sugar better controlled as he says he can keep more compliant if he is on pills as he frequently misses his insulin there may need to be some adjustment in doses Pending Studies at Discharge: No Stand-Alone Forms: My [facility] Skilled Items Patient informed of condition?: Yes Discharge Level of Care: Other Communicable Disease: No Discharge Prognosis: Stable Lines: None Urinary Catheter: No Medications and DC Order Prescriptions: New metformin 500 mg Tablet 1,000 mg PO BIDM Qty: 60 0RF glyburide 5 mg Tablet 5 mg PO QDB Qty: 60 0RF levothyroxine [Synthroid] 50 mcg Tablet 50 mcg PO DAILYBB Qty: 30 0RF Continued lisinopril 5 mg Tablet 5 mg PO DAILY Qty: 0 duloxetine 30 mg Capsule,Delayed Release(Dr/Ec) 30 mg PO HS Qty: 0 Rx Instructions: take with 60mg = 90 mg total furosemide [Lasix] 40 mg Tablet 40 mg PO DAILY atorvastatin 40 mg Tablet 40 mg PO DAILY oxcarbazepine [Trileptal] 300 mg Tablet 300 mg PO BID aspirin 81 mg Tablet,Delayed Release (Dr/Ec) 81 mg PO DAILY Tarsum Professional 2 % Shampoo 1 applic TOPICAL DAILY levothyroxine 50 mcg Tablet 50 mcg PO DAILY albuterol sulfate 90 mcg/actuation Hfa Aerosol Inhaler 2 puff INHALATION QID PRN (Reason: SOB) buprenorphine-naloxone 8-2 mg Tablet, Sublingual 2 tab SUBLINGUAL DAILY duloxetine 60 mg Capsule,Delayed Release(Dr/Ec) 60 mg PO HS Rx Instructions: take with 30mg= 90 mg total Discontinued insulin glargine [Semglee U-100 Insulin] 100 unit/mL Solution 30 unit SUBCUT PM metformin 850 mg Tablet 850 mg PO BID Novolin R Regular U100 Insulin 100 unit/mL Solution 1 sliding scale dose SUBCUT USEASDIRECTD Rx Instructions: 201-225 2 U, 225-250 4 U, 251-300 6 U, 301-650 8 U, 351-400 10 U, >401 16 U PRN Discharge Orders: Discharge Order (Routine); Ordered 05/01/23 Ordered By: Michele Mari/Other Patient Handouts: Levothyroxine Oral Tablet, Glyburide Oral Tablet, Metformin Oral Tablet, High Blood Sugar (Hyperglycemia), Understanding Type 2 Diabetes, ED Diabetes with High Blood Sugar Admission Data Admit Date/Time: 04/29/23 15:26 Attending Provider: Michele Ledbetter Admit Provider: Rajesh Marks Primary Care Provider: Kendall DONOVAN Other Providers: Rajesh Marks Other Interventions: Discharge Summary Assessment (RN) Last Done: 05/01/23 12:05 Coding Level of Care Code 82939 INP/OBS DISCH >30 MIN Diagnoses Type 2 diabetes mellitus with hyperosmolarity, uncontrolled E11.00; E11.65 Opioid use disorder in remission F11.91 HTN (hypertension) I10 Anxiety and depression F41.9; F32.A
== END 2023-05-01 12:41 | DRG 639 ==
LOC: ED 11:09 → SUATTDRO 15:26 → 2W 15:26